=== PATIENT | male | born 1940 | race Caucasian/White ===

== ENCOUNTER → 2017-01-14 | Outpatient (CLI) | payer OTHER ==
[~2017-01-14] MED LIST: ASPCH81X PO; ATOR10TA88 PO; CALC500C70 PO; CHOL100010 PO; CLIN1LOT5 TOP; DSWCR TOP; FERR1TAB23; GLIM1TAB2 PO; HYDR25TA4 PO; LEUP1INJ6 INJ; LOSA50TA6 PO; METF-841 PO; MULT-506 PO; TRIA0.1C20 TOP
[2017-01-14 12:50] LABS: ESTIMATED AVERAGE GLUCOSE 140 mg/dl; HA1C FLAG Normal (Normal)
[2017-01-14 12:51] LABS: BASO % 0.6 %; BASO ABS # 0.04 K/uL (0-0.2); COMPLETE YES; EOS % 6.9 %; HEMATOCRIT 38.2 % (42-52); IG% 0.4 %; LYMPH % 10.9 %; LYMPH ABS # 0.73 K/uL (1.2-3.4); MEAN CORPUSCULAR HEMOGLOBIN 30.8 pg (25-34); MEAN CORPUSCULAR HGB CONC 33.5 g/dl (32-36); MONO % 10.1 %; NEUT % 71.1 %; PLATELET COUNT 220 K/uL (130-400); RED BLOOD COUNT 4.15 M/uL (4.7-6.1); WHITE BLOOD COUNT 6.71 K/uL (4.8-10.8)
[2017-01-14 12:54] LABS: URINE APPEARANCE CLEAR (CLEAR); URINE BILIRUBIN NEG (NEG); URINE COLOR YELLOW; URINE EPITHELIAL CELL AUTO 0-5 /lpf (0-5); URINE NITRITE NEG (NEG); UROBILINOGEN NEG (NEG); ZZUR CULT IF INDIC CLEAN CATCH NO
[2017-01-14 12:57] LABS: MANUAL MICROSCOPIC REQUIRED? NO; REVIEW REQ? NO
[2017-01-14 13:08] LABS: FERRITIN 131.5 ng/ml (8.0-388.0)
[2017-01-14 13:59] LABS: RATIO 5.3 mcg/mg (0-30.0)
--- NOTE | 2017-01-20 11:53 | CODING QUERY MEDICAL NECESSITY ---
SUPPORTING DIAGNOSIS NEEDED A supporting diagnosis is required for the test/procedure performed on this patient in order for us to be reimbursed by the patient's insurance. Please provide a supporting diagnosis for the following test/procedure listed below next to the test name along with your signature. *If there is no additional diagnosis for this patient that would support the following test/procedure please document that below next to the test/procedure. Test(s)/Procedure(s) that require a supporting diagnosis: * FOLATE LEVEL DIAGNOSIS: * VITAMIN B-12 LEVEL DIAGNOSIS: * DOS: 01/14/17 Provider Signature: Date: Thank you Elena Arias Health Information Management Once completed, please kindly fax back to [phone] For questions please call [phone]
== END | disposition home or self-care (01) ==
LOC: C.LABBFT 09:46
PROVIDERS: ATTEND Internal Medicine
DX: C61 Malignant neoplasm of prostate (principal); E11.9 Type 2 diabetes mellitus without complications; D64.9 Anemia, unspecified

== ENCOUNTER → 2017-04-08 | Outpatient (CLI) | payer OTHER ==
[~2017-04-08] MED LIST changes: +ATOR10TA82 PO; -ATOR10TA88 PO
[2017-04-08 17:40] LABS: BLOOD UREA NITROGEN 21 mg/dl (7-18); C-REACTIVE PROTEIN < 0.29 mg/dl (0-0.29); CREATININE 0.88 mg/dl (0.60-1.40)
[2017-04-08 17:50] LABS: THYROID STIMULATING HORMONE 0.959 uIu/ml (0.300-4.500)
[2017-04-10 15:48] LABS: ALBUMIN 3.7 G/DL (3.8-4.8); GAMMA GLOBULIN 1.1 G/DL (0.8-1.7); TOTAL PROTEIN 6.5 G/DL (6.2-8.3)
== END | disposition home or self-care (01) ==
LOC: C.LABBC 15:26
PROVIDERS: ATTEND Psychiatry & Neurology Neurology
DX: Z00.00 Encounter for general adult medical examination without abnormal findings (principal); R42 Dizziness and giddiness; R29.818 Other symptoms and signs involving the nervous system; G62.9 Polyneuropathy, unspecified; E11.9 Type 2 diabetes mellitus without complications

== ENCOUNTER → 2017-04-08 | Outpatient (CLI) | payer OTHER ==
--- NOTE | 2017-04-09 10:48 | EEG Procedure Note ---
EEG Procedure Note Date of Service April 08, 2017. Start / End Times Start Time: 2:51pm End Time: 3:11pm Referring Physician Lidia Rios History 76 year old male with dizziness and hemisensory deficit. EEG for further eval of possible seizure etiology. Home Medication List Scheduled Aspirin (Aspirin Chewable), 81 MG PO HS Atorvastatin (Lipitor), 1 TAB PO HS Calcium/Vitamin D (Os-Juma 500 Plus D), 1 TAB PO QAM Cholecalciferol (Vitamin D), 1,000 INTER.UNIT PO QAM Hydrochlorothiazide (Hctz), 1 TAB PO QAM Leuprolide Acetate (6 Month) (Lupron Depot), 45 MG INJ [id number] Losartan Potassium (Cozaar), 1 TAB PO QAM Metformin HCl (Metformin HCl ER), 1 TAB PO BID Multivitamin (Multivitamin), 1 TAB PO QAM Scheduled PRN Clindamycin Phosphate (Topical (Clindamycin Phosphate), 1 APPLN TOP BID PRN for PRN Desonide 0.05% (Desowen 0.05%), 1 APPLN TOP BID PRN for PRN Triamcinolone Acet 0.1% (Aristocort 0.1%), 1 DOSE TOP PRN PRN for PRN Description This is a 21 electrode EEG with a single channel dedicated to limited EKG. The electrodes were placed in accordance with the International 10-20 system. At the start of the recording the patient was in an awake state. The background was well organized and composed of symmetric mixed alpha and beta frequencies. There was a well formed symmetric moderate amplitude posterior dominant rhythm of 8-9Hz that was reactive to eye opening and closure. Hyperventilation was not done. Photic stimulation at various frequencies produced no abnormalities. Drowsiness was indicated by slowing of the background rhythm and loss of muscle artifact. Sleep was indicated by vertex waves and symmetric sleep spindles Interpretation This is a normal awake and asleep routine EEG There was no electrographic seizures or epileptiform discharges. Clinical Correlation A normal EEG does not rule out epilepsy if there is a strong clinical suspicion.
== END | disposition home or self-care (01) ==
LOC: C.NEUR 14:12
PROVIDERS: ATTEND Psychiatry & Neurology Neurology
DX: R42 Dizziness and giddiness (principal)

== ENCOUNTER → 2017-04-10 | Outpatient (CLI) | payer OTHER ==
[~2017-04-10] MED LIST changes: +GADAVIST IV PRN
--- NOTE | 2017-04-10 10:06 | DIAGNOSTIC IMAGING REPORT ---
NECK MRA HISTORY: Dizziness, hemisensory DEFICIT TECHNIQUE: [id number] and gadolinium-enhanced MRA of the neck was performed both before and after the intravenous administration of contrast. All measurements were calculated based on NASCET criteria. The patient was administered 10 cc of intravenous Gadavist. COMPARISON STUDY: None. FINDINGS: The aortic arch and proximal great vessels are widely patent. There is no significant stenosis, occlusion, or dissection identified within the bilateral common carotid, internal carotid, or vertebral arteries. IMPRESSION: No significant stenosis, occlusion, or dissection identified within the carotid or vertebral arteries. Electronically signed by: Shahbaz Cline M.D. 04/10/2017 10:05 AM Dictated Date/Time: 04/10/2017 10:02 AM
--- NOTE | 2017-04-10 10:58 | DIAGNOSTIC IMAGING REPORT ---
MRI OF THE BRAIN WITHOUT AND WITH IV CONTRAST CLINICAL HISTORY: Dizziness, hemisensory DEFECTIS COMPARISON STUDY: No previous studies for comparison. TECHNIQUE: Utilizing a 1.5 Shelby magnet and dedicated coil, multiplanar, multiecho imaging of the brain was performed pre and postcontrast administration. IV administration of 8.5 mL of Gadavist contrast was uneventful. FINDINGS: Diffusion-weighted images are negative for an acute ischemic insult. No evidence for abnormal postcontrast enhancement. Signal characteristics are unremarkable throughout. Mild age-related chronic small vessel change and atrophy. IMPRESSION: Age-related change. No acute process. Electronically signed by: Jack Suero M.D. 04/10/2017 10:57 AM Dictated Date/Time: 04/10/2017 10:02 AM
== END | disposition home or self-care (01) ==
LOC: C.MRIBC 08:32
PROVIDERS: ATTEND Psychiatry & Neurology Neurology
DX: R42 Dizziness and giddiness (principal); R29.818 Other symptoms and signs involving the nervous system

== ENCOUNTER → 2017-06-04 | Outpatient (CLI) | payer OTHER ==
[~2017-06-04] MED LIST changes: -ATOR10TA82 PO; +ATOR10TA88 PO; -GADAVIST IV PRN
[2017-06-04 12:29] LABS: BASO % 0.9 %; BASO ABS # 0.05 K/uL (0-0.2); COMPLETE YES; EOS % 7.5 %; HEMATOCRIT 38.6 % (42-52); IG% 0.2 %; LYMPH ABS # 0.94 K/uL (1.2-3.4); MEAN CELL VOLUME 92.3 fL (80-100); MEAN CORPUSCULAR HEMOGLOBIN 30.1 pg (25-34); MEAN CORPUSCULAR HGB CONC 32.6 g/dl (32-36); MEAN PLATELET VOLUME 10.4 fL (7.4-10.4); MONO % 9.2 %; NEUT % 66.2 %; PLATELET COUNT 230 K/uL (130-400); RED BLOOD COUNT 4.18 M/uL (4.7-6.1); WHITE BLOOD COUNT 5.87 K/uL (4.8-10.8)
[2017-06-04 12:47] LABS: ALT/SGPT 28 U/L (12-78); BLOOD UREA NITROGEN 17 mg/dl (7-18); BUN/CREATININE RATIO 17.9 (10-20); CALCIUM 8.6 mg/dl (8.5-10.1); CARBON DIOXIDE 25 mmol/L (21-32); CHLORIDE 110 mmol/L (98-107); CHOLESTEROL 138 mg/dl (0-200); CREATININE 0.95 mg/dl (0.60-1.40); GLUCOSE 122 mg/dl (70-99); POTASSIUM 3.8 mmol/L (3.5-5.1); SODIUM 142 mmol/L (136-145); TRIGLYCERIDES 146 mg/dl (0-150); VERY LOW DENSITY LIPOPROT CALC 29 mg/dl
[2017-06-04 12:57] LABS: ALB/GLOB RATIO 0.9 (0.9-2); ALKALINE PHOSPHATASE 68 U/L (45-117); AST/SGOT 17 U/L (15-37); CHOLESTEROL/HDL RATIO 3.2; HDL CHOLESTEROL 43 mg/dl; LDL CHOLESTEROL CALCULATED 66 mg/dl
[2017-06-04 13:14] LABS: ESTIMATED AVERAGE GLUCOSE 143 mg/dl; HA1C FLAG Normal (Normal)
== END | disposition home or self-care (01) ==
LOC: C.LABBFT 07:34
PROVIDERS: ATTEND Internal Medicine
DX: E53.8 Deficiency of other specified B group vitamins (principal); E78.5 Hyperlipidemia, unspecified; E11.9 Type 2 diabetes mellitus without complications; I10 Essential (primary) hypertension; R42 Dizziness and giddiness; H90.5 Unspecified sensorineural hearing loss

== ENCOUNTER → 2017-06-11 | Outpatient (CLI) | payer OTHER ==
[2017-06-11 14:24] VITALS: BP 133/72; PULSE 84; TEMP 36.8; O2SAT 97
--- NOTE | 2017-06-12 08:23 | Radiation Oncology Follow-Up ---
Radiation Oncology Follow-Up Date of Visit Jun 11, 2017. (Kinjal Posada PA-C) Reason For Visit 6 month follow-up (Kinjal Posada PA-C) Radiation Completion Date 05/09/16 (Kinjal Posada PA-C) Diagnosis (1) Prostate cancer Status: Resolved Onset Date: 12/18/2015 Location: both lobes of the prostate Histology Subtype: adenocarcinoma Stage: ll Permanent Comment: DIAGNOSIS: Prostate, adenocarcinoma, kyara 5 + 4, PSA 14.4 , cT2a, group IIB Hormonal suppression Status post completion of radiation therapy 05/09/2016 received 8100 cGy Last Edited By: Kinjal Posada on May 16, 2016 09:54 (Kinjal Posada PA-C) History of Present Illness Mr. Schneider is a 76-year-old gentleman who presents with a history of an elevated PSA with multiple negative prostate biopsies. His most recent PSA was 14.4 on 11/01/2015. He was referred to Dr. Donald Key at [facility] in the Department of Urology. He underwent a transrectal ultrasound-guided biopsy on 12/18/2015 which did reveal prostate adenocarcinoma involving 9/13 cores. [place] 5+4 and 4+5 disease was found in all of the cores. Specifically , 3 cores had Kyara 5+4 disease involving greater than 50% of each core. Perineural invasion was identified. The patient did have a CT abdomen and pelvis completed on 01/09/2016 which showed no evidence of pelvic lymphadenopathy and bony metastatic disease. The patient also had a bone scan on 01/05/2016 which showed no evidence of metastatic disease. Dr. Key discuss treatment options which included surgery and radiation therapy with androgen deprivation therapy. After an in depth discussion, the patient elected for long-term androgen deprivation therapy along with radiation therapy. He has elected to have his radiation therapy closer to home and [place] and we are now seeing him in consultation. Currently, the patient is doing relatively well. He has healed up well from his previous biopsy. His IPSS score is 22/35. His EPIC QOL score is 20/60. He denies any significant history of rectal bleeding. He has no history of inflammatory bowel disease. He's no other complaints. He began hormonal suppression. This was administered through Dr. Key's office. He then underwent radiation therapy. This was completed 05/19/2016. He received 8100 cGy. (Kinjal Posada PA-C) Interim History He is been doing well over the past 6 months. He gave an AUA score of 12. He stated that he had been off the Uroxatral for approximately 6 months and then restarted because he felt his urination was doing better while on the medication. He does have a side effect of mild lightheadedness with standing. He is due for his last Lupron injection in July which she'll be receiving at 's office. He has mild hot flashes. He completed expanded prostate cancer index composite for clinical practice and gave a score of 2 of 12 and urinary incontinence symptoms. He gave a score of 4 of 12 and urinary irritation symptoms. He gave a score of 3 of 12 in bowel symptoms. He gave a score of 8 of 12 in sexual symptoms. To note he states this is not a problem. He gave a score of 3 of 12 and hormonal vitality symptoms. His total was 20 of 60. He had a PSA 01/14/2017. The result was less than 0.010. (Kinjal Posada PA-C) Allergies Coded Allergies: No Known Allergies (Verified , 08/09/16) Home Medications Scheduled Aspirin (Aspirin Chewable), 81 MG PO HS Atorvastatin (Lipitor), 1 TAB PO HS Calcium/Vitamin D (Os-Juma 500 Plus D), 1 TAB PO QAM Cholecalciferol (Vitamin D), 1,000 INTER.UNIT PO QAM Ferrous Sulfate (Iron), DAILY Glimepiride (Glimepiride), 1 TAB PO DAILY Hydrochlorothiazide (Hctz), 1 TAB PO QAM Leuprolide Acetate (6 Month) (Lupron Depot), 45 MG INJ [id number] Losartan Potassium (Cozaar), 1 TAB PO QAM Metformin HCl (Metformin HCl ER), 1 TAB PO BID Multivitamin (Multivitamin), 1 TAB PO QAM Scheduled PRN Clindamycin Phosphate (Topical (Clindamycin Phosphate), 1 APPLN TOP BID PRN for PRN Desonide 0.05% (Desowen 0.05%), 1 APPLN TOP BID PRN for PRN Triamcinolone Acet 0.1% (Aristocort 0.1%), 1 DOSE TOP PRN PRN for PRN Review of Systems Gastrointestinal: Symptoms: WNL GI Comments: oc nausea usually once a week episode of diarrhea Oral: Symptoms: No Problems Respiratory: Symptoms: WNL Urinary: Symptoms: WNL Comments: slow at times Skin: Symptoms: No Problems Other Skin Symptoms: exzema (Kinjal Posada PA-C) Physical Exam Vital Signs Date Time Temp Pulse Resp B/P (MAP) Pulse Ox O2 Delivery O2 Flow Rate FiO2 06/11/17 14:24 36.8 84 20 133/72 97 Pain: Patient Pain Scale: 0 - 10 Initial Pain Intensity: 0.0 Fatigue: None General Appearance: no apparent distress Eyes: normal inspection, EOMI ENT: normal ENT inspection, hearing grossly normal Neck: no adenopathy, thyroid normal Respiratory/Chest: lungs clear, no respiratory distress, no accessory muscle use Cardiovascular: regular rate, rhythm, no gallop, no murmur Abdomen: non tender, soft Extremities: no pedal edema Neurologic/Psychiatric: no motor/sensory deficits, alert Skin: warm/dry (Kinjal Posada PA-C) Laboratory Studies Test 04/08/17 15:33 05/23/17 15:23 06/04/17 07:39 Erythrocyte Sedimentation Rate 15 mm/hr (0-14) C-Reactive Protein < 0.29 mg/dl (0-0.29) Udusj-3-Voxnzexkf 0.2 G/DL (0.2-0.3) Hkaut-4-Ncuosoaox 0.8 G/DL (0.5-0.9) Vlbg-6-Llspuoyv 0.4 G/DL (0.4-0.6) Uvcn-2-Ireibbct 0.3 G/DL (0.2-0.5) Gamma Globulins 1.1 G/DL (0.8-1.7) Prot Electrophor Monoclonal Peak 3 G/DL (NOT DETECTED) Serum Monoclonal Protein G/DL (NOT DETECTED) Serum Monoclonal Protein (2) G/DL (NOT DETECTED) Protein Electrophoresis Interpret SEE NOTE Thyroid Stimulating Hormone (TSH) 0.959 uIu/ml (0.300-4.500) 1.370 uIu/ml (0.300-4.500) Serum Immunofixation SEE NOTE Total Protein (MORENO) 6.5 G/DL (6.2-8.3) Albumin (MORENO) 3.7 G/DL (3.8-4.8) Anti-Nuclear Antibody Screen NEGATIVE (NEGATIVE) Rapid Plasma Reagin NONREACTIVE (NONREACT) White Blood Count 6.48 K/uL (4.8-10.8) 5.87 K/uL (4.8-10.8) Red Blood Count 4.17 M/uL (4.7-6.1) 4.18 M/uL (4.7-6.1) Hemoglobin 12.9 g/dL (14.0-18.0) 12.6 g/dL (14.0-18.0) Hematocrit 37.9 % (42-52) 38.6 % (42-52) Mean Corpuscular Volume 90.9 fL (80-100) 92.3 fL (80-100) Mean Corpuscular Hemoglobin 30.9 pg (25-34) 30.1 pg (25-34) Mean Corpuscular Hemoglobin Concent 34.0 g/dl (32-36) 32.6 g/dl (32-36) Platelet Count 223 K/uL (130-400) 230 K/uL (130-400) Mean Platelet Volume 10.5 fL (7.4-10.4) 10.4 fL (7.4-10.4) Neutrophils (%) (Auto) 68.7 % 66.2 % Lymphocytes (%) (Auto) 14.7 % 16.0 % Monocytes (%) (Auto) 8.2 % 9.2 % Eosinophils (%) (Auto) 7.1 % 7.5 % Basophils (%) (Auto) 0.8 % 0.9 % Neutrophils # (Auto) 4.46 K/uL (1.4-6.5) 3.89 K/uL (1.4-6.5) Lymphocytes # (Auto) 0.95 K/uL (1.2-3.4) 0.94 K/uL (1.2-3.4) Monocytes # (Auto) 0.53 K/uL (0.11-0.59) 0.54 K/uL (0.11-0.59) Eosinophils # (Auto) 0.46 K/uL (0-0.5) 0.44 K/uL (0-0.5) Basophils # (Auto) 0.05 K/uL (0-0.2) 0.05 K/uL (0-0.2) RDW Standard Deviation 44.8 fL (36.4-46.3) 46.2 fL (36.4-46.3) RDW Coefficient of Variation 13.5 % (11.5-14.5) 13.7 % (11.5-14.5) Immature Granulocyte % (Auto) 0.5 % 0.2 % Immature Granulocyte # (Auto) 0.03 K/uL (0.00-0.02) 0.01 K/uL (0.00-0.02) Sodium Level 143 mmol/L (136-145) 142 mmol/L (136-145) Potassium Level 3.6 mmol/L (3.5-5.1) 3.8 mmol/L (3.5-5.1) Chloride Level 109 mmol/L (98-107) 110 mmol/L (98-107) Carbon Dioxide Level 25 mmol/L (21-32) 25 mmol/L (21-32) Anion Gap 9.0 mmol/L (3-11) 7.0 mmol/L (3-11) Blood Urea Nitrogen 18 mg/dl (7-18) 17 mg/dl (7-18) Creatinine 0.96 mg/dl (0.60-1.40) 0.95 mg/dl (0.60-1.40) Estimated GFR () 88.0 89.1 Estimated GFR (Non- 75.9 76.9 BUN/Creatinine Ratio 18.4 (10-20) 17.9 (10-20) Random Glucose 108 mg/dl (70-99) 122 mg/dl (70-99) Calcium Level 9.3 mg/dl (8.5-10.1) 8.6 mg/dl (8.5-10.1) Erythropoietin 12.5 MIU/ML (2.6-18.5) Total Bilirubin 0.2 mg/dl (0.2-1) 0.3 mg/dl (0.2-1) Aspartate Amino Transferase (AST) 20 U/L (15-37) 17 U/L (15-37) Alanine Aminotransferase (ALT) 31 U/L (12-78) 28 U/L (12-78) Alkaline Phosphatase 63 U/L (45-117) 68 U/L (45-117) Lactate Dehydrogenase 148 U/L (87-241) Total Protein 6.9 gm/dl (6.4-8.2) 6.8 gm/dl (6.4-8.2) Albumin 3.5 gm/dl (3.4-5.0) 3.3 gm/dl (3.4-5.0) Globulin 3.4 gm/dl (2.5-4.0) 3.5 gm/dl (2.5-4.0) Albumin/Globulin Ratio 1.0 (0.9-2) 0.9 (0.9-2) Methylmalonic Acid 201 NMOL/L (87-318) Homocysteine 11.4 UMOL/L (<11.4) Free [place] Light Chains, Quant 17.2 MG/L (3.3-19.4) Free Lambda Light Chains, Quant 18.2 MG/L (5.7-26.3) Free [place]/Lambda Light Chain Ratio 0.95 (0.26-1.65) Estimated Average Glucose 143 mg/dl Hemoglobin A1c 6.6 % (4.5-5.6) Triglycerides Level 146 mg/dl (0-150) Cholesterol Level 138 mg/dl (0-200) HDL Cholesterol 43 mg/dl LDL Cholesterol, Calculated 66 mg/dl VLDL Cholesterol, Calculated 29 mg/dl Cholesterol/HDL Ratio 3.2 Vitamin B12 Level 219 pg/mL (211-911) Intrinsic Factor Type I Blocking Ab Negative (Negative) (Kinjal Posada PA-C) Assessment & Plan Plan: Continue regular follow-up with his urologist. He'll be seeing him in July. He'll have a PSA prior to that visit. He'll be receiving his last Lupron injection. He is planning to continue the Uroxatral. 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 He stated currently is doing well regards to his eyes and has not been found to have any cataracts thus far. We asked him to return to our office in 1 year. He may call if he has any questions or concerns in the interim. (Kinjal Posada PA-C) I agree with note created by Kinjal Posada PA-C. I reviewed the patient's chart and information with her. (Veeral. Damian MD) Total Time In Follow-Up I spent 20 minutes speaking to the patient performing examination. I spent 15 minutes reviewing information in completing this note. (Kinjal Posada PA-C) Copy To José Mixon M.D.; Donald Key M.D.
== END | disposition home or self-care (01) ==
LOC: C.ONC 14:08
PROVIDERS: ATTEND Physician Assistant Medical
DX: Z08 Encounter for follow-up examination after completed treatment for malignant neoplasm (principal); Z92.3 Personal history of irradiation; Z85.46 Personal history of malignant neoplasm of prostate

== ENCOUNTER → 2017-06-20 | Outpatient (CLI) | payer OTHER ==
[~2017-06-20] MED LIST changes: +GADAVIST IV PRN
--- NOTE | 2017-06-20 14:36 | DIAGNOSTIC IMAGING REPORT ---
BRAIN COMBO FOR IAC CLINICAL HISTORY: R42 Episodic [id number] SNHL (sensorineural hearing lo TECHNIQUE: Multiaxial MRI acquisition COMPARISON STUDY: 04/10/2017 FINDINGS: Findings of generalized moderate cerebellar as well as cerebral atrophy. Ventricular system is midline. Moderate chronic small vessel change of aging. No abnormal postcontrast enhancement. Sella and parasellar regions are unremarkable. Internal auditory canals are symmetric IMPRESSION: Age-related change. No acute process. Normal internal auditory canals The above report was generated using voice recognition software. It may contain grammatical, syntax or spelling errors. Electronically signed by: Jack Suero M.D. 06/20/2017 2:34 PM Dictated Date/Time: 06/20/2017 2:31 PM
== END | disposition home or self-care (01) ==
LOC: C.MRI 13:16
PROVIDERS: ATTEND Physician Assistant
DX: H90.5 Unspecified sensorineural hearing loss (principal); R42 Dizziness and giddiness

== ENCOUNTER → 2017-07-21 | Outpatient (CLI) | payer OTHER ==
[~2017-07-21] MED LIST changes: -GADAVIST IV PRN
== END | disposition home or self-care (01) ==
LOC: C.LABBFT 07:45
PROVIDERS: ATTEND Urology
DX: C61 Malignant neoplasm of prostate (principal)

== ENCOUNTER → 2018-01-12 | Outpatient (CLI) | payer OTHER ==
[~2018-01-12] MED LIST changes: +ATOR10TA82 PO; -ATOR10TA88 PO
[2018-01-12 12:34] LABS: BASO % 0.3 %; BASO ABS # 0.02 K/uL (0-0.2); EOS % 3.2 %; EOS ABS # 0.24 K/uL (0-0.5); HEMATOCRIT 38.2 % (42-52); HEMOGLOBIN 12.4 g/dL (14.0-18.0); IG# 0.02 K/uL (0.00-0.02); LYMPH % 10.6 %; LYMPH ABS # 0.79 K/uL (1.2-3.4); MEAN CELL VOLUME 93.2 fL (80-100); MEAN CORPUSCULAR HEMOGLOBIN 30.2 pg (25-34); MEAN CORPUSCULAR HGB CONC 32.5 g/dl (32-36); MEAN PLATELET VOLUME 10.8 fL (7.4-10.4); MONO % 8.2 %; MONO ABS # 0.61 K/uL (0.11-0.59); NEUT % 77.4 %; NEUT ABS # 5.75 K/uL (1.4-6.5); PLATELET COUNT 260 K/uL (130-400); RED CELL DISTRIBUTION WIDTH CV 13.7 % (11.5-14.5); RED CELL DISTRIBUTION WIDTH SD 46.2 fL (36.4-46.3); WHITE BLOOD COUNT 7.43 K/uL (4.8-10.8)
[2018-01-12 13:09] LABS: BLOOD UREA NITROGEN 20 mg/dl (7-18); CALCIUM 8.8 mg/dl (8.5-10.1); CARBON DIOXIDE 23 mmol/L (21-32); CREATININE 0.97 mg/dl (0.60-1.40); GLUCOSE 132 mg/dl (70-99); POTASSIUM 3.7 mmol/L (3.5-5.1); SODIUM 139 mmol/L (136-145)
[2018-01-12 13:35] LABS: HEMOGLOBIN A1C 6.5 % (4.5-5.6)
== END | disposition home or self-care (01) ==
LOC: C.LABBFT 07:28
PROVIDERS: ATTEND Internal Medicine
DX: E11.9 Type 2 diabetes mellitus without complications (principal); E53.8 Deficiency of other specified B group vitamins; D64.9 Anemia, unspecified

== ENCOUNTER 2018-02-15 15:10 | Emergency (ER) | payer OTHER ==
[~2018-02-15] VITALS: Ht 175.3 cm; Wt 102.3 kg
[2018-02-15 15:12] VITALS: TEMP 36.8; Ht 175.3 cm; Wt 102.3 kg
[2018-02-15] MEDS ORDERED: SODIUM CHLORIDE 0.9% 500ML 500 ML IV STA (15:24)
[2018-02-15] MEDS ORDERED: ONDANSETRON INJ 2 MG/ML 2 ML VIAL IV STA (15:24)
[2018-02-15 15:45] LABS: BASO % 0.2 %; BASO ABS # 0.02 K/uL (0-0.2); EOS % 2.7 %; EOS ABS # 0.26 K/uL (0-0.5); HEMATOCRIT 37.7 % (42-52); HEMOGLOBIN 12.7 g/dL (14.0-18.0); IG# 0.02 K/uL (0.00-0.02); LYMPH % 7.5 %; LYMPH ABS # 0.72 K/uL (1.2-3.4); MEAN CELL VOLUME 91.3 fL (80-100); MEAN CORPUSCULAR HEMOGLOBIN 30.8 pg (25-34); MEAN CORPUSCULAR HGB CONC 33.7 g/dl (32-36); MEAN PLATELET VOLUME 10.3 fL (7.4-10.4); MONO % 4.6 %; MONO ABS # 0.44 K/uL (0.11-0.59); NEUT % 84.8 %; NEUT ABS # 8.16 K/uL (1.4-6.5); PLATELET COUNT 218 K/uL (130-400); RED CELL DISTRIBUTION WIDTH CV 14.2 % (11.5-14.5); WHITE BLOOD COUNT 9.62 K/uL (4.8-10.8)
[2018-02-15] MEDS ORDERED: VTMD1000 PO (15:48)
[2018-02-15 16:07] LABS: ALBUMIN 3.5 gm/dl (3.4-5.0); CALCIUM 8.9 mg/dl (8.5-10.1); CREATININE 1.21 mg/dl (0.60-1.40); POTASSIUM 3.6 mmol/L (3.5-5.1)
[2018-02-15 16:10] LABS: TOTAL PROTEIN 7.3 gm/dl (6.4-8.2)
[2018-02-15 16:45] VITALS: BP 158/69; PULSE 75; O2SAT 98
--- NOTE | 2018-02-15 16:47 | DIAGNOSTIC IMAGING REPORT ---
ABD/PELVIS WITHOUT FOR STONE HISTORY: 77 years-old Male right flank pain eval for stone/appe acute right-sided flank pain COMPARISON: CT 01/09/2016 TECHNIQUE: Multiple axial CT images of the abdomen and pelvis were obtained without contrast. A dose lowering technique was used consistent with the principals of SAVANA. FINDINGS: Subsegmental bibasilar atelectasis/scarring. There is no pneumatosis or pneumoperitoneum. Imaged inferior cardiac chambers are mildly enlarged. Coronary arterial disease. Mild fatty infiltration of the liver. No intrahepatic biliary ductal dilation. Contracted gallbladder. The spleen, pancreas and right adrenal gland are unremarkable. 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 Moderate nonspecific bilateral perinephric stranding. Low attenuating 1.5 cm lesion of the inferior pole right kidney suggests renal cyst. Additionally, there is suggestion of bilateral renal sinus cysts. There is no ureteral calculi or obstructive uropathy identified. Urinary bladder is collapsed. Brachy therapy seeds are noted within the prostate. There is moderate to extensive atherosclerosis of the aorta without aneurysm. No bulky adenopathy. There is no bowel obstruction or focal bowel wall thickening identified. Moderate colonic diverticulosis without CT evidence of acute diverticulitis. The appendix appears normal. Soft tissues are within normal limits. Facet arthrosis involves the thoracolumbar spine with multilevel spondylitic changes. No suspicious lytic or blastic bony lesions identified. IMPRESSION: 1. No acute intra-abdominal or intrapelvic abnormality identified, specifically no renal calculi or obstructive uropathy. 2. Colonic diverticulosis without CT evidence of acute diverticulitis. 3. Hepatic steatosis. 4. Additional findings as above. The above report was generated using voice recognition software. It may contain grammatical, syntax or spelling errors. Electronically signed by: Jerry Cisneros M.D. 02/15/2018 4:45 PM Dictated Date/Time: 02/15/2018 4:39 PM
[2018-02-15] MEDS ORDERED: ONDANSETRON HOME PACK 4MG OD TAB PO ONE (17:15)
--- NOTE | 2018-02-15 18:59 | EMERGENCY ROOM VISIT NOTE ---
History Report prepared by Shalom: Livan Montano Under the Supervision of: Dr. Rohan Mao M.D. First contact with patient: 15:18 Chief Complaint: FLANK PAIN Stated Complaint: PAIN IN LOWER LEFT SIDE,VOMITING History of Present Illness The patient is a 77 year old male who presents to the Emergency Room with complaints of constant right sided flank pain starting around 1130 this morning. The patient describes the pain as an ache. He additionally notes that he constantly feels the urge to urinate and defecate. The patient denies any burning with urination, fever, chest pain, and diarrhea. He notes that he vomited this morning. He denies any chest pain. The patient has a history of prostate cancer which was treated, and he denies any history of kidney stones. He notes that he still has his appendix. Source of History: patient Onset: 1130 this morning Position: other (right flank) Symptom Intensity: moderate Quality: ache Timing: constant Associated Symptoms: + vomiting, No fevers, No chest pain, No diarrhea Note: Associated symptoms: he constantly feels the urge to urinate and defecate Review of Systems See HPI for pertinent positives & negatives. A total of 10 systems reviewed and were otherwise negative. Past Medical & Surgical Medical Problems: (1) Diabetes (2) HLD (hyperlipidemia) (3) HTN (hypertension) (4) Prostate cancer Family History FHx: colonic polyps Social History Smoking Status: Never Smoker Marital Status: Occupation Status: retired Current/Historical Medications Scheduled Aspirin (Aspirin Chewable), 81 MG PO HS Atorvastatin (Lipitor), 1 TAB PO HS Calcium/Vitamin D (Os-Juma 500 Plus D), 1 TAB PO QAM Cholecalciferol (Vitamin D3), 1,000 UNITS PO QAM Glimepiride (Glimepiride), 1 MG PO QDB Hydrochlorothiazide (Hctz), 1 TAB PO QAM Losartan Potassium (Cozaar), 1 TAB PO QAM Metformin HCl (Metformin HCl ER), 1 TAB PO BID Multivitamin (Multivitamin), 1 TAB PO QAM Scheduled PRN Desonide 0.05% (Desowen 0.05%), 1 APPLN TOP BID PRN for PRN Allergies Coded Allergies: No Known Allergies (Verified , 02/15/18) Physical Exam Vital Signs Date Time Temp Pulse Resp B/P (MAP) Pulse Ox O2 Delivery O2 Flow Rate FiO2 02/15/18 16:45 75 16 158/69 98 Room Air 02/15/18 15:12 36.8 79 18 167/71 97 Room Air Physical Exam Constitutional: Vital signs reviewed. Eyes: Pupils are equal round reactive to light. Conjunctiva are noninjected. ENT: Pharynx is clear without erythema or exudate. Mucous membranes are moist. Neck supple without meningeal signs. Respiratory: Clear to auscultation bilaterally. Breath sounds are equal bilaterally. Cardiovascular: Regular rate and rhythm. No rubs or gallops. GI: Right mid and lower abdominal tenderness. No guarding. No CVA tenderness. Soft, nondistended. Bowel sounds are present. Musculoskeletal: No peripheral edema. No lower extremity tenderness. Integumentary: No cyanosis. Neurological: The patient is awake and alert. No focal deficits. Psychiatric: Normal affect. Medical Decision & Procedures ER Provider Diagnostic Interpretation: Radiology results as stated below per my review and the radiologist's interpretation: ABD/PELVIS WITHOUT FOR STONE HISTORY: 77 years-old Male right flank pain eval for stone/appe acute right-sided flank pain COMPARISON: CT 01/09/2016 TECHNIQUE: Multiple axial CT images of the abdomen and pelvis were obtained without contrast. A dose lowering technique was used consistent with the principals of SAVANA. FINDINGS: Subsegmental bibasilar atelectasis/scarring. There is no pneumatosis or pneumoperitoneum. Imaged inferior cardiac chambers are mildly enlarged. Coronary arterial disease. Mild fatty infiltration of the liver. No intrahepatic biliary ductal dilation. Contracted gallbladder. The spleen, pancreas and right adrenal gland are unremarkable. 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 Moderate nonspecific bilateral perinephric stranding. Low attenuating 1.5 cm lesion of the inferior pole right kidney suggests renal cyst. Additionally, there is suggestion of bilateral renal sinus cysts. There is no ureteral calculi or obstructive uropathy identified. Urinary bladder is collapsed. Brachy therapy seeds are noted within the prostate. There is moderate to extensive atherosclerosis of the aorta without aneurysm. No bulky adenopathy. There is no bowel obstruction or focal bowel wall thickening identified. Moderate colonic diverticulosis without CT evidence of acute diverticulitis. The appendix appears normal. Soft tissues are within normal limits. Facet arthrosis involves the thoracolumbar spine with multilevel spondylitic changes. No suspicious lytic or blastic bony lesions identified. IMPRESSION: 1. No acute intra-abdominal or intrapelvic abnormality identified, specifically no renal calculi or obstructive uropathy. 2. Colonic diverticulosis without CT evidence of acute diverticulitis. 3. Hepatic steatosis. 4. Additional findings as above. The above report was generated using voice recognition software. It may contain grammatical, syntax or spelling errors. Electronically signed by: Jerry Cisneros M.D. 02/15/2018 4:45 PM Dictated Date/Time: 02/15/2018 4:39 PM Laboratory Results 02/15/18 15:31 Red Blood Count 4.13, Mean Corpuscular Volume 91.3, Mean Corpuscular Hemoglobin 30.8, Mean Corpuscular Hemoglobin Concent 33.7, Mean Platelet Volume 10.3, Neutrophils (%) (Auto) 84.8, Lymphocytes (%) (Auto) 7.5, Monocytes (%) (Auto) 4.6, Eosinophils (%) (Auto) 2.7, Basophils (%) (Auto) 0.2, Neutrophils # (Auto) 8.16, Lymphocytes # (Auto) 0.72, Monocytes # (Auto) 0.44, Eosinophils # (Auto) 0.26, Basophils # (Auto) 0.02 02/15/18 15:31 Test 02/15/18 15:26 02/15/18 15:31 Urine Color DK YELLOW Urine Appearance CLOUDY (CLEAR) Urine pH 5.0 (4.5-7.5) Urine Specific [place] 1.027 (1.000-1.030) Urine Protein NEG (NEG) Urine Glucose (UA) NEG (NEG) Urine Ketones TRACE (NEG) Urine Occult Blood 3+ (NEG) Urine Nitrite NEG (NEG) Urine Bilirubin NEG (NEG) Urine Urobilinogen NEG (NEG) Urine Leukocyte Esterase NEG (NEG) Urine WBC (Auto) 1-5 /hpf (0-5) Urine RBC (Auto) >30 /hpf (0-4) Urine Hyaline Casts (Auto) 1-5 /lpf (0-5) Urine Epithelial Cells (Auto) 5-10 /lpf (0-5) Urine Bacteria (Auto) NEG (NEG) White Blood Count 9.62 K/uL (4.8-10.8) Red Blood Count 4.13 M/uL (4.7-6.1) Hemoglobin 12.7 g/dL (14.0-18.0) Hematocrit 37.7 % (42-52) Mean Corpuscular Volume 91.3 fL (80-100) Mean Corpuscular Hemoglobin 30.8 pg (25-34) Mean Corpuscular Hemoglobin Concent 33.7 g/dl (32-36) Platelet Count 218 K/uL (130-400) Mean Platelet Volume 10.3 fL (7.4-10.4) Neutrophils (%) (Auto) 84.8 % Lymphocytes (%) (Auto) 7.5 % Monocytes (%) (Auto) 4.6 % Eosinophils (%) (Auto) 2.7 % Basophils (%) (Auto) 0.2 % Neutrophils # (Auto) 8.16 K/uL (1.4-6.5) Lymphocytes # (Auto) 0.72 K/uL (1.2-3.4) Monocytes # (Auto) 0.44 K/uL (0.11-0.59) Eosinophils # (Auto) 0.26 K/uL (0-0.5) Basophils # (Auto) 0.02 K/uL (0-0.2) RDW Standard Deviation 47.0 fL (36.4-46.3) RDW Coefficient of Variation 14.2 % (11.5-14.5) Immature Granulocyte % (Auto) 0.2 % Immature Granulocyte # (Auto) 0.02 K/uL (0.00-0.02) Anion Gap 9.0 mmol/L (3-11) Est Creatinine Clear Calc Drug Dose 60.3 ml/min Estimated GFR () 66.5 Estimated GFR (Non- 57.4 BUN/Creatinine Ratio 18.3 (10-20) Calcium Level 8.9 mg/dl (8.5-10.1) Total Bilirubin 0.4 mg/dl (0.2-1) Direct Bilirubin 0.1 mg/dl (0-0.2) Aspartate Amino Transf (AST/SGOT) 19 U/L (15-37) Alanine Aminotransferase (ALT/SGPT) 29 U/L (12-78) Alkaline Phosphatase 80 U/L (45-117) Total Protein 7.3 gm/dl (6.4-8.2) Albumin 3.5 gm/dl (3.4-5.0) Lipase 156 U/L (73-393) Laboratory results as reviewed by me. Medications Administered Medications (Trade) Dose Ordered Sig/Medardo Route Start Time Stop Time Status Last Admin Dose Admin Ondansetron HCl (Zofran Inj) 4 mg NOW STAT IV 02/15/18 15:24 02/15/18 15:26 DC 02/15/18 15:35 4 MG Sodium Chloride 500 ml @ 999 mls/hr Q31M STAT IV 02/15/18 15:24 02/15/18 15:54 DC 02/15/18 15:35 999 MLS/HR Ondansetron HCl (ZOFRAN ODT 4MG Home Pack) 1 homepack UD ONCE PO 02/15/18 17:15 02/15/18 17:16 DC 02/15/18 17:15 1 HOMEPACK ED Course 1518: The patient was evaluated in room A11. A complete history and physical exam was performed. 1524: Sodium Chloride 500 ml @ 999 mls/hr IV, Zofran 4mg IV 1707: I reevaluated the patient, and he is feeling better now. He states that he had a little bit of nausea earlier, but that passed. The patient will be discharged home. 1715: Zofran ODT 4mg Home Pack PO Medical Decision This is a 77-year-old male who presents with right-sided flank pain. Differential diagnosis includes kidney stone, UTI, pyelonephritis, strain, appendicitis. I did perform a limited focused review of portions of the patient 's old chart on the electronic medical record. The patient has had no recent pertinent visits to this hospital. I did evaluate the patient as noted above. He is presenting with right-sided flank pain. He has some mild tenderness in the right lower abdomen and mid abdomen. IV access was established. I did treat the patient with normal saline and Zofran IV. I did order and personally review the patient's urinalysis as described above. He has hematuria but no evidence of infection. A urine culture was sent. I did order and review the patient's blood work as noted in the electronic medical record. He has mild anemia but his hemoglobin is improved since his last visit. White count is not elevated. I did order a CT of the abdomen and pelvis. I did review the images myself as well as the radiology report as described above. There is no evidence of acute process on the CT scan. I did discuss the test results with the patient. He states that at this time is not having any significant pain. He states lying in a certain position seems to help his pain although is not sure if that is truly related. At this time the cause of his symptoms is unclear and so I did recommend close follow-up with his regular physician within the next 48 hours. He was discharged in good condition. Medication Reconcilliation Current Medication List: was personally reviewed by me Blood Pressure Screening Patient's blood pressure: Elevated blood pressure Blood pressure disposition: Referred to PCP Impression Primary Impression: Right flank pain Scribe Attestation The scribe's documentation has been prepared under my direct and personally reviewed by me in its entirety. I confirm that the note above accurately reflects all work, treatment, procedures, and medical decision making performed by me. Departure Information Dispostion Home / Self-Care Referrals José Mixon M.D. (PCP) Forms HOME CARE DOCUMENTATION FORM, IMPORTANT VISIT INFORMATION Patient Instructions ED Flank Pain Uncertain Cause, My [facility] Additional Instructions You have been examined and treated today on an emergency basis only. This is not a substitute for, or an effort to provide, complete comprehensive medical care. It is impossible to recognize and treat all injuries or illnesses in a single emergency department visit. It is therefore important that you follow up closely with your physician within 48 hours. Call as soon as possible for an appointment. Return for worsening symptoms or if you develop fever, vomiting, or any other concerning symptoms.
== END 2018-02-15 17:15 | disposition home or self-care (01) ==
LOC: C.EDB 15:12 → C.EDA 17:15
DX: R10.31 Right lower quadrant pain (principal); Z85.46 Personal history of malignant neoplasm of prostate; E11.9 Type 2 diabetes mellitus without complications; E78.5 Hyperlipidemia, unspecified; I10 Essential (primary) hypertension; Z83.71 Family history of colonic polyps; Z79.82 Long term (current) use of aspirin; Z79.899 Other long term (current) drug therapy

== ENCOUNTER → 2018-02-16 | Outpatient (CLI) | payer OTHER ==
[~2018-02-16] MED LIST changes: -CHOL100010 PO; -CLIN1LOT5 TOP; -FERR1TAB23; -LEUP1INJ6 INJ; -TRIA0.1C20 TOP; +VTMD1000 PO
--- NOTE | 2018-02-16 12:51 | DIAGNOSTIC IMAGING REPORT ---
CHEST AND ABDOMEN 2 VIEWS HISTORY: Right flank pain. COMPARISON: Chest 03/13/2015. Abdomen and pelvis CT 02/15/2018. FINDINGS: The lungs are essentially clear. The heart is normal in size. Left perihilar nodular density remain stable and is consistent with a tortuous vessel. No pleural effusions. No pneumothorax. No renal or ureteral calculi. No dilated loops of bowel to suggest an obstruction. A few brachytherapy seeds at the prostate gland. IMPRESSION: No acute cardiopulmonary process. No evidence for bowel obstruction. Electronically signed by: Eliceo Kasper M.D. 02/16/2018 12:50 PM Dictated Date/Time: 02/16/2018 12:46 PM
== END | disposition home or self-care (01) ==
LOC: C.RAD1850 10:58
PROVIDERS: ATTEND Physician Assistant Medical
DX: R10.9 Unspecified abdominal pain (principal)

== ENCOUNTER → 2018-02-23 | Outpatient (CLI) | payer OTHER ==
[~2018-02-23] MED LIST changes: +URX/10 PO
--- NOTE | 2018-02-23 08:43 | DIAGNOSTIC IMAGING REPORT ---
ABDOMINAL ULTRASOUND, RIGHT UPPER QUADRANT HISTORY: Right-sided abdominal pain. Constipation.. COMPARISON: CT of the abdomen and pelvis February 15, 2018 and abdominal series February 16, 2018. FINDINGS: Increased hepatic echogenicity is due to fatty infiltration. No hepatic lesions are identified on this exam. There is no biliary ductal dilatation. The gallbladder is normal. There are no gallstones. Right-sided parapelvic cysts are noted as well as a 5.3 cm anechoic lesion consistent with a cyst which arises from the lower pole of the right kidney. Pancreatic body is unremarkable. The head and tail are partially obscured by overlying bowel gas. IMPRESSION: 1. Fatty infiltration of the liver. 2. No gallstones or biliary ductal dilatation. Electronically signed by: Luis Starks M.D. 02/23/2018 8:42 AM Dictated Date/Time: 02/23/2018 8:38 AM
== END | disposition home or self-care (01) ==
LOC: C.ULTR 07:50
PROVIDERS: ATTEND Physician Assistant Medical
DX: R10.9 Unspecified abdominal pain (principal); K59.00 Constipation, unspecified; K76.0 Fatty (change of) liver, not elsewhere classified

== ENCOUNTER → 2018-03-11 | Day surgery (SDC) | payer OTHER ==
[2018-03-05 14:31] VITALS: BMI 33.0
[~2018-03-11] VITALS: Ht 175.3 cm; Wt 102.3 kg
[~2018-03-11] MED LIST changes: +LIDOCAINE HCL 2% 2 ML VIAL (20MG/ML) ONE; +PROPOFOL IV EMULSION 10 MG/ML 20 ML VIAL IV ONE; +SODIUM CHLORIDE 0.9% 500ML 500 ML IV ONE
[2018-03-11 08:19] VITALS: Ht 175.3 cm; Wt 102.3 kg
--- NOTE | 2018-03-11 08:47 | Endo History and Physical ---
History & Physical Date of Service: Mar 11, 2018. Chief Complaint: hematochezia Referring Physician: Dr. Mixon History of Present Illness 77 yo CM who presents for colonoscopy secondary to hematochezia. Past Medical History Diabetes, Cancer, High Cholesterol, Hypertension Past Surgical History Hx Cardiac Surgery: No Hx Internal Defibrillator: No Hx Pacemaker: No Hx Abdominal Surgery: No Hx of Implantable Prosthesis: No Hx Post-Op Nausea and Vomiting: No Hx Cancer Surgery: Yes (RADIATION SEEDING PROSTATE) Hx Thoracic Surgery: No Hx Orthopedic: No Hx Urinary Tract Surgery: Yes (VASECTOMY) Family History Polyp Social History Smoking Status: Never Smoker Hx Substance Use: No Hx Alcohol Use: No Allergies Coded Allergies: No Known Allergies (Verified , 03/11/18) Current Medications Reported Home Medications Medications Dose Route/Sig Max Daily Dose Days Date Category Alfuzosin HCl ER (Alfuzosin HCl) 10 Mg Tab 10 Mg PO QPM 03/05/18 Reported Vitamin D3 (Cholecalciferol) 1,000 Inter.unit Tab 1,000 Units PO QAM 02/15/18 Reported Glimepiride 1 Mg Tab 1 Mg PO QAM 30 06/11/17 Reported Os-Juma 500 Plus D (Calcium/Vitamin D) Tab 1 Tab PO QAM 08/01/16 Reported Metformin HCl ER (Metformin HCl) 1,000 Mg Tab 1 Tab PO BID 08/01/16 Reported Multivitamin (Multivitamins) Tab 1 Tab PO QAM 01/18/16 Reported Cozaar (Losartan Potassium) 50 Mg Tab 1 Tab PO QAM 01/18/16 Reported Hctz (Hydrochlorothiazide) 25 Mg Tab 1 Tab PO QAM 01/18/16 Reported Desowen 0.05% (Desonide) 60 Gm Cr 1 Appln TOP BID PRN 01/18/16 Reported Lipitor (Atorvastatin Calcium) 10 Mg Tab 1 Tab PO HS 01/18/16 Reported Aspirin Chewable (Aspirin) 81 Mg Chew 81 Mg PO HS 01/18/16 Reported Vital Signs Weight (Kilograms): 102.27 Height (Feet): 5 Height (Inches): 9 Date Time Temp Pulse Resp B/P (MAP) Pulse Ox O2 Delivery O2 Flow Rate FiO2 03/11/18 08:26 36.5 96 20 175/100 (125) 97 Room Air Physical Exam General Appearance: WD/WN, no apparent distress Respiratory/Chest: Auscultation: breath sounds normal Cardiovascular: Heart Auscultation: RRR Abdomen: Bowel Sounds: normal Inspection & Palpation: soft, non-distended, no tenderness, guarding & rebound Assessment and Plan Assessment: 77 yo CM who presents for colonoscopy secondary to hematochezia. Plan: Proceed with colonoscopy.
--- NOTE | 2018-03-11 09:40 | Discharge Instructions ---
Endoscopy Patient Instructions Date / Procedure(s) Performed Mar 11, 2018. Colonoscopy Allergy Information Coded Allergies: No Known Allergies (Verified , 03/11/18) Discharge Date / Findings Mar 11, 2018. Colon polyps Radiation proctitis Medication Instructions OK to resume all medications today as prescribed Reported Home Medications Medications Dose Route/Sig Max Daily Dose Days Date Category Alfuzosin HCl ER (Alfuzosin HCl) 10 Mg Tab 10 Mg PO QPM 03/05/18 Reported Vitamin D3 (Cholecalciferol) 1,000 Inter.unit Tab 1,000 Units PO QAM 02/15/18 Reported Glimepiride 1 Mg Tab 1 Mg PO QAM 30 06/11/17 Reported Os-Juma 500 Plus D (Calcium/Vitamin D) Tab 1 Tab PO QAM 08/01/16 Reported Metformin HCl ER (Metformin HCl) 1,000 Mg Tab 1 Tab PO BID 08/01/16 Reported Multivitamin (Multivitamins) Tab 1 Tab PO QAM 01/18/16 Reported Cozaar (Losartan Potassium) 50 Mg Tab 1 Tab PO QAM 01/18/16 Reported Hctz (Hydrochlorothiazide) 25 Mg Tab 1 Tab PO QAM 01/18/16 Reported Desowen 0.05% (Desonide) 60 Gm Cr 1 Appln TOP BID PRN 01/18/16 Reported Lipitor (Atorvastatin Calcium) 10 Mg Tab 1 Tab PO HS 01/18/16 Reported Aspirin Chewable (Aspirin) 81 Mg Chew 81 Mg PO HS 01/18/16 Reported Provider Instructions Activity Restrictions - No exercising or heavy lifting for 24 hours. - Do not drink alcohol the day of the procedure. - Do not drive a car or operate machinery until the day after the procedure. - Do not make any important decisions or sign important papers in 24 hours after the procedure. Following Day: - Return to full activity which may include returning to work/school. Diet Start your diet with liquids and light foods (jello, soup, juice, toast). Then eat your usual diet if not nauseated. Treatment For Common After Affects For mild abdominal pain, bloating, or excessive gas: - Rest - Eat lightly - Lie on right side Follow-Up Information Follow-up with Dr. Mixon as scheduled Anesthesia Information What You Should Know You have had a procedure that required some medicine to reduce anxiety and discomfort. This treatment is called moderate sedation. After receiving the treatment, you may be sleepy, but you will be able to breathe on your own. The effects of the treatment may last for several hours. Follow these instructions along with Activity/Diet recommendations noted above: * Do NOT do anything where dizziness or clumsiness would be dangerous. * Rest quietly at home today, then you can be up and about tomorrow. * Have a responsible person stay with you the rest of today. * You may have had an I.V. today. If so, you may take the dressing off later today. Recommendations Call your doctor if: * Trouble breathing * Continuous vomiting for more than 24 hours * Temperature above 101 degrees * Severe abdominal pain or bloating * Pain not relieved by pain medicine ordered * There is increased drainage or redness from any incision * A large amount of rectal bleeding greater than 2-3 tablespoons. (If you had a polyp/s removed or have hemorrhoids, a small amount of blood - from the rectum is to be expected.) * You have any unanswered questions or concerns. IN THE EVENT OF A SERIOUS EMERGENCY, GO TO THE NEAREST EMERGENCY ROOM Your discharge instructions were prepared by provider Jaya Murdock. Patient Instructions Signature Page Denzel Schneider Patient (or Guardian) Signature/Date: I have read and understand the instructions given to me by my caregivers. Caregiver/RN/Doctor Signature/Date: The above-named patient and/or guardian has received patient instructions on this date. + Original Patient Signature Page (only) stays with chart. Please make copy for patient.
--- NOTE | 2018-03-11 09:45 | GI REPORT ---
Procedure Date: 03/11/2018 9:19 AM Procedure: Colonoscopy Indications: Hematochezia Medicines: Monitored Anesthesia Care Complications: No immediate complications. Estimated Blood Loss: Estimated blood loss: none. Procedure: Pre-Anesthesia Assessment: - Prior to the procedure, a History and Physical was performed, and patient medications and allergies were reviewed. The patient's tolerance of previous anesthesia was also reviewed. The risks and benefits of the procedure and the sedation options and risks were discussed with the patient. All questions were answered, and informed consent was obtained. Prior Anticoagulants: The patient has taken aspirin, last dose was 2 days prior to procedure. ASA Grade Assessment: III - A patient with severe systemic disease. After reviewing the risks and benefits, the patient was deemed in satisfactory condition to undergo the procedure. After I obtained informed consent, the scope was passed under direct vision. Throughout the procedure, the patient's blood pressure, pulse, and oxygen saturations were monitored continuously. The scope was introduced through the anus and advanced to the terminal ileum. The colonoscopy was performed without difficulty. The patient tolerated the procedure well. The quality of the bowel preparation was good. The terminal ileum, ileocecal valve, appendiceal orifice, and rectum were photographed. Findings: The perianal and digital rectal examinations were normal. Two sessile polyps were found in the hepatic flexure and ascending colon. The polyps were 4 to 6 mm in size. These polyps were removed with a hot snare. Resection and retrieval were complete. 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 Impression: - Two 4 to 6 mm polyps at the hepatic flexure and in the ascending colon, removed with a hot snare. Resected and retrieved. - Multiple non-bleeding colonic angioectasias. Recommendation: - Resume previous diet. - Continue present medications. - Repeat colonoscopy for surveillance based on pathology results. - Return to primary care physician as previously scheduled. Jaya Murdock, DO 03/11/2018 9:45:27 AM This report has been signed electronically. Note Initiated On: 03/11/2018 9:19 AM I attest to the content of the Intraoperative Record and orders documented therein, exceptions below
--- NOTE | 2018-03-11 10:05 | Anesthesiology Progress Note ---
Anesthesia Post Op Note Date & Time Mar 11, 2018 at 10:05 Vital Signs Pain Intensity: 0 Vital Signs Past 12 Hours Date Time Temp Pulse Resp B/P (MAP) Pulse Ox O2 Delivery O2 Flow Rate FiO2 03/11/18 10:00 71 18 130/67 (88) 97 Room Air 03/11/18 09:45 36.5 81 16 140/68 (92) 97 Room Air 03/11/18 08:26 36.5 96 20 175/100 (125) 97 Room Air Notes Mental Status: alert / awake / arousable, participated in evaluation Pt Amnestic to Procedure: Yes Nausea / Vomiting: adequately controlled Pain: adequately controlled Airway Patency, RR, SpO2: stable & adequate BP & HR: stable & adequate Hydration State: stable & adequate Anesthetic Complications: no major complications apparent
[2018-03-11 10:15] VITALS: BP 126/78; PULSE 58; O2SAT 97
== END | disposition home or self-care (01) ==
LOC: C.GI 08:00
PROVIDERS: ATTEND Internal Medicine
DX: K92.1 Melena (principal); D12.2 Benign neoplasm of ascending colon; D12.3 Benign neoplasm of transverse colon; K62.7 Radiation proctitis; I10 Essential (primary) hypertension; E78.00 Pure hypercholesterolemia, unspecified; E11.9 Type 2 diabetes mellitus without complications; Z86.010 Personal history of colon polyps; Z79.82 Long term (current) use of aspirin

== ENCOUNTER → 2018-07-17 | Outpatient (CLI) | payer OTHER ==
[~2018-07-17] MED LIST changes: +CLIN1GEL TOP; +DOCU-94 PO; +FERR1TAB13 PO; -LIDOCAINE HCL 2% 2 ML VIAL (20MG/ML) ONE; -PROPOFOL IV EMULSION 10 MG/ML 20 ML VIAL IV ONE; -SODIUM CHLORIDE 0.9% 500ML 500 ML IV ONE
[2018-07-17 12:31] LABS: BASO % 0.7 %; BASO ABS # 0.04 K/uL (0-0.2); EOS % 7.8 %; EOS ABS # 0.46 K/uL (0-0.5); HEMATOCRIT 36.9 % (42-52); HEMOGLOBIN 11.9 g/dL (14.0-18.0); IG# 0.02 K/uL (0.00-0.02); LYMPH % 12.1 %; LYMPH ABS # 0.71 K/uL (1.2-3.4); MEAN CELL VOLUME 93.7 fL (80-100); MEAN CORPUSCULAR HEMOGLOBIN 30.2 pg (25-34); MEAN CORPUSCULAR HGB CONC 32.2 g/dl (32-36); MEAN PLATELET VOLUME 11.2 fL (7.4-10.4); MONO % 11.5 %; MONO ABS # 0.68 K/uL (0.11-0.59); NEUT % 67.6 %; NEUT ABS # 3.98 K/uL (1.4-6.5); PLATELET COUNT 206 K/uL (130-400); RED CELL DISTRIBUTION WIDTH CV 14.3 % (11.5-14.5); RED CELL DISTRIBUTION WIDTH SD 48.5 fL (36.4-46.3); WHITE BLOOD COUNT 5.89 K/uL (4.8-10.8)
[2018-07-17 12:47] LABS: ALBUMIN 3.3 gm/dl (3.4-5.0); ALKALINE PHOSPHATASE 58 U/L (45-117); ALT/SGPT 25 U/L (12-78); AST/SGOT 17 U/L (15-37); BLOOD UREA NITROGEN 20 mg/dl (7-18); CALCIUM 8.6 mg/dl (8.5-10.1); CARBON DIOXIDE 26 mmol/L (21-32); CHOLESTEROL 113 mg/dl (0-200); CREATININE 1.01 mg/dl (0.60-1.40); GLUCOSE 130 mg/dl (70-99); LDL CHOLESTEROL CALCULATED 52 mg/dl; SODIUM 143 mmol/L (136-145); TOTAL PROTEIN 6.6 gm/dl (6.4-8.2)
[2018-07-17 12:57] LABS: HEMOGLOBIN A1C 6.4 % (4.5-5.6)
== END | disposition home or self-care (01) ==
LOC: C.LABBFT 07:26
PROVIDERS: ATTEND Internal Medicine
DX: E11.9 Type 2 diabetes mellitus without complications (principal); D64.9 Anemia, unspecified; E78.5 Hyperlipidemia, unspecified

== ENCOUNTER 2025-02-03 15:47 | Inpatient (IN) ==
--- NOTE | 2025-02-03 16:19 | Emergency Department Note ---
History of Present Illness General Chief complaint: Fall Stated complaint: FALL, ANKLE DEFORM Time Seen by Provider: 02/03/25 16:07 History of Present Illness Maximum Pain Intensity: 1 This is an 84-year-old male presenting to the emergency department via EMS from home for evaluation of left ankle injury after fall at home. Patient states that he was wearing socks when he slipped on the carpeted steps going down stairs. He believes that he fell 3 or 4 steps, landing awkwardly. There is obvious deformity to the left ankle without bleeding. Patient was given IV fentanyl prehospital. Pulses are reportedly intact. The patient does not report any injury to his head, neck, chest, or arms. No lightheadedness or dizziness. His discomfort is rated a 1/10 at rest, but increases with movement. Home Medications Medication Instructions Recorded Confirmed Type alfuzosin 10 mg tablet,extended 10 mg PO QAM 05/12/19 02/03/25 History release 24 hr aspirin 81 mg tablet,delayed 81 mg PO HS 05/12/19 02/03/25 History release cyanocobalamin (vitamin B-12) 100 mcg subcut Q30D 05/12/19 02/03/25 History 1,000 mcg/mL injection kit desonide 0.05 % topical cream 1 appln topical BID PRN 05/26/19 02/03/25 History DIRECTED #1 g blood-glucose meter (Accu-Chek #1 ea 08/20/19 02/03/25 Rx Guide Glucose Meter) geriatric [id number] 1 tab PO QAM 10/06/19 02/03/25 History docusate sodium 100 mg capsule 200 mg PO HS 10/27/19 02/03/25 History betamethasone dipropionate 0.05 % 1 applic topical DAILY PRN . 10/11/20 02/03/25 History topical cream calcium citrate 200 mg PO BID 10/17/23 02/03/25 History lancets (Accu-Chek Fastclix Lancet #100 ea 11/13/23 02/03/25 Rx Drum) amlodipine 10 mg tablet 10 mg PO QPM #100 tabs 02/16/24 02/03/25 Rx blood sugar diagnostic (Accu-Chek #50 ea 04/14/24 02/03/25 Rx Guide test strips) spironolactone 25 1 tab PO QPM #90 tabs 06/21/24 02/03/25 Rx mg-hydrochlorothiazide 25 mg tablet glimepiride 1 mg tablet 1 mg PO QPM #90 tabs 08/12/24 02/03/25 Rx famotidine 20 mg tablet 20 mg PO BID #180 tabs 08/17/24 02/03/25 Rx metformin 500 mg tablet,extended 500 mg PO BID #180 tabs 09/09/24 02/03/25 Rx release 24 hr leuprolide [Lupron Depot] 1 dose IM .30 days 11/18/24 02/03/25 History losartan 50 mg tablet 50 mg PO BID #180 tabs 11/18/24 02/03/25 Rx atorvastatin 10 mg tablet 10 mg PO HS 02/03/25 02/03/25 History econazole nitrate 1 % topical cream 1 applic topical UD PRN FEET 02/03/25 02/03/25 History Allergies Allergy/AdvReac Type Severity Reaction Status Date / Time No Known Drug Allergies Allergy Verified 11/18/24 08:21 Past Med/Surg History Problem List (Updated 02/03/25 @ 18:49 by James Wynne PA-C) Fall down stairs (Acute) Closed fracture of distal end of left fibula and tibia (Acute) Closed fracture dislocation of left ankle (Acute) Ankle fracture, bimalleolar, closed Perirectal abscess Anemia Carotid artery stenosis SNHL (sensorineural hearing loss) (Acute) Squamous cell carcinoma of skin (Acute) Diabetes Prostate cancer (Chronic 12/18/15) HLD (hyperlipidemia) HTN (hypertension) Anemia hx 2019-used to get iron infusions Vitamin B12 deficiency (Acute) Tubular adenoma of colon (Acute) hx Polyneuropathy (Acute) Iron deficiency (Acute) Hemisensory deficit (Acute) Erectile dysfunction (Acute) Episodic lightheadedness (Acute) "only happens when driving on highways, no other time" BPH (benign prostatic hyperplasia) (Acute) GERD (gastroesophageal reflux disease) (Acute) Medical History Left buttock abscess I&D in office 11/04/23>reason for current anx History of COVID-19 10/2021>light cold symptoms>no current symptoms History of prostate cancer Hx of squamous cell carcinoma Diabetes mellitus, type 2 Cancer SKIN [id number] PROSTATE CANCER (RADIATON SEEDS AND RADIATION THERAPY) Surgical History Hx of right cataract extraction Hx of prostate biopsy under anesthesia for the bx and radiation seed implants History of local excision of skin lesion S/P vasectomy History of colonoscopy History of tooth extraction Family History Father Myocardial infarction Borderline diabetes mellitus COPD (chronic obstructive pulmonary disease) Mother Breast cancer Parkinsons disease Brother Coronary heart disease Hx of CABG Hypertension Sister Thyroid cancer Osteoarthritis Aunt Diabetes Uncle Heart disease Other No family history of adverse response to anesthesia Prostate cancer Stroke Denies family history of Colorectal cancer Social History Smoking Status: Never smoker Second Hand Exposure: Yes (hx as child); Do You Dip or Chew Tobacco: No; Hx Alcohol Use: No Hx Substance Use: No Preferred Language: Macanese Communication Ability: Effective Hearing Ability: Normal Ceramic Chemist Required: No Beliefs That Will Affect Care: None marital status: / Current Living Situation: Alone current occupational status: retired current occupation: Retired Oct 2023 from parttime job. How many Children do You have: 3 Feels Safe at Home: Yes Childhood Exposure to Second-Hand Smoke: Yes Diet: diabetic and regular caffeine: Yes during the past year weight has: remained stable Dental Care, Regularly: Yes Physical Activity Frequency: 1-2 Times per Week Seatbelt Use: always Sunscreen Use: Yes Assistive Devices: Glasses Review of Systems A total of 10 systems reviewed and were otherwise negative Physical Exam Vital Signs Vital Signs - 24 hr 02/03/25 15:54 02/03/25 16:29 02/03/25 17:49 Temperature 37.0 C Temperature Source Oral Pulse Rate 100 H 94 H Pulse Rate [Apical] 96 H Pulse Strength [Apical] Normal Respiratory Rate 16 22 Respiratory Effort / Characteristics Non-Labored Spontaneous Respiratory Depth Normal Respiratory Pattern Regular Blood Pressure 164/81 H Blood Pressure [Right Arm] 162/56 H Blood Pressure Mean 108 Blood Pressure Mean [Right Arm] 91 Blood Pressure Position Semi-fowlers Blood Pressure Position [Right Arm] Lying Pulse Oximetry 97 99 Oxygen Delivery Method Room Air Sepsis Recent Fever Within 48 Hours No Sepsis New/Unexplained Change in Mental Status No Sepsis Action Taken by Nursing No Action Required VITALS: Vitals are noted on the nurse's note and reviewed by myself. Vital signs stable. GENERAL: Well-developed, well-nourished, white male, who is in no acute distress and resting comfortably. Patient is cooperative with the examination. HEAD: Normocephalic atraumatic. NECK: Supple without nuchal rigidity. No lymphadenopathy. No thyromegaly. Cervical spine is nontender. HEART: Regular rate and rhythm without murmurs gallops or rubs. LUNGS: Clear to auscultation bilaterally without wheezes, rales or rhonchi. No retractions or accessory muscle use. MUSCULOSKELETAL: Significant deformity at the left ankle is noted. The foot is essentially turned 90 degrees laterally. There is tenting along the medial aspect of the extremity. Neurovascular status appears intact. No evidence of open dislocation or fracture. No tenderness to the remaining extremities. NEURO: Patient was alert and oriented to person place and time. CN II through XII grossly intact. GCS 15. Procedures Free Text Procedures Definitive Fracture Care Note: The patient has a fracture as follow: Bimalleolar left tibia/fibular fracture Plan: Immobilized with Ortho-Glass splint Analgesia: IV fentanyl Specialty Follow up: Orthopedics Orthopedic Joint Reduction Joint #1: Time Out Performed: Yes Side: left Joint Reduction Location: ankle Technique used: traction/counter-traction and direct manipulation Post-reduction neuro exam: intact Post-reduction vascular: intact Post Reduction X-Ray Obtained: Yes Post Reduction X-Ray Results: reduced Splint Applied: Yes Patient Tolerated Procedure: well and no complications Course Administered Medications Acetaminophen (Acetaminophen 325 Mg Tab) 650 mg PO Q6H FRANCISCA Stop: 03/05/25 17:59 Last Admin: 02/03/25 18:09 Dose: 650 mg Documented By: ANGEL Medical Decision Making Differential Diagnosis Differential diagnosis includes, but is not limited to: Sprain, strain, fracture, dislocation, subluxation, contusion, and others Laboratory Data 02/03/25 16:15 02/03/25 16:15 Lab Results 02/03/25 Range/Units 16:15 WBC 9.96 (4.8-10.8) K/ul RBC 3.54 L (4.70-6.10) M/uL Hgb 11.3 L (14.0-18.0) g/dl Hct 33.3 L (42.0-52.0) % MCV 94.1 (80.0-100.0) fL MCH 31.9 (25.0-34.0) pg MCHC 33.9 (32.0-36.0) g/dL RDW Std Deviation 44.2 (36.4-46.3) fL RDW Coeff of Gino 12.8 (11.5-14.5) % Plt Count 221 (130-400) K/uL MPV 10.5 (9.4-12.4) fL Immature Gran % (Auto) 0.6 % Neut % (Auto) 77.3 % Lymph % (Auto) 9.2 % [place] % (Auto) 8.5 % Eos % (Auto) 3.9 % Baso % (Auto) 0.5 % Neut # (Auto) 7.69 H (1.40-6.50) K/uL Lymph # (Auto) 0.92 L (1.20-3.40) K/uL [place] # (Auto) 0.85 H (0.11-0.59) K/uL Eos # (Auto) 0.39 (0.00-0.50) K/uL Baso # (Auto) 0.05 (0.00-0.20) K/uL Immature Gran # (Auto) 0.06 (0.01-0.20) K/uL Sodium 137 (136-145) mmol/L Potassium 4.1 (3.5-5.1) mmol/L Chloride 104 (98-107) mmol/L Carbon Dioxide 21 (21-32) mmol/L Anion Gap 12 H (3-11) BUN 35 H (6-23) mg/dl Creatinine 1.25 (0.6-1.4) mg/dl Est Cr Clr Drug Dosing 52.6 ml/min eGFR 56.78 BUN/Creatinine Ratio 28.0 H (10-20) Glucose 263 H (70-99(Fasting)) mg/dl Calcium 9.5 (8.6-10.3) mg/dl Total Bilirubin 0.2 (0.2-1.0) mg/dl AST 18 (13-39) U/L ALT 16 (7-52) U/L Alkaline Phosphatase 66 (34-104) U/L Total Protein 6.6 (6.0-8.3) gm/dl Albumin 3.9 (3.4-5.0) gm/dl Globulin 2.7 (2.5-4.0) gm/dl Albumin/Globulin Ratio 1.4 (0.9-2) Imaging Data Radiologist's Impression: Ankle X-Ray 02/03/25 16:13 INDICATION: Pain and injury. TECHNIQUE: 3 views of the left ankle. COMPARISON: No relevant priors. FINDINGS: Displaced, oblique fracture of the distal fibula. Remaining osseous structures intact. No dislocation. Prominent calcifications adjacent to the medial malleolus. Small plantar calcaneal enthesophyte. Soft tissue swelling. IMPRESSION: Displaced, oblique fracture of the distal fibula. Electronically signed by Julio Cesar Nicole 02-03-2025 4:32 PM Tibia/Fibula X-Ray 02/03/25 16:25 Clinical History: Fracture 3 views of the left lower leg are submitted for review. Findings: There is an acute oblique fracture of the distal fibular shaft and metaphysis with approximately one half shaft width displacement. There are bone fragments inferior to the medial malleolus that may be due to old injury. No subluxation or dislocation is seen. There is mild joint space narrowing in the medial compartment of the left knee. There are small patellar osteophytes also. There is a plantar calcaneal spur. No other osseous abnormality is identified. There are no radiopaque foreign bodies. Vascular calcifications are present Impression: 1. Acute fracture of the distal left fibula 2. Fragmentation of the medial malleolus that may be due to old injury 3. Mild left knee osteoarthritis 4. Calcaneal spur Electronically signed by John Ramirez 02-03-2025 4:55 PM [facility] Narrative Physical exam and history were performed. Nursing notes, EMR, and Medication List were personally reviewed. No social concerns were identified as barriers to patients care. Patient appears to have fallen down stairs with subsequent injury to his left ankle. Patient was seen immediately on arrival to the ER, where he has significant tenting of the skin medially with obvious dislocation laterally at the ankle joint. There is no bleeding and this appears to be a closed injury. The patient has been given fentanyl by EMS and in an effort to preserve neurovascular status I did immediately perform reduction at bedside. This did result in significant improvement of the anatomic position clinically, and relieved pressure off the medial skin that was previously tenting. IV access has been established and labs obtained. X-rays were ordered and ice packs applied. Patient's blood work is as above and was reviewed. He does not have a significantly elevated white blood cell count, gross anemia, bandemia, or significant electrolyte imbalance. Transaminases are not diagnostic. X-rays were performed and reviewed by myself and radiology. He does appear to have a closed bimalleolar fracture without proximal extension. Patient was offered additional analgesia, however he feels much better after the reduction. Case was discussed with orthopedics, Froilan Collins, who is covering for Dr. Martinez. Patient will likely need surgical intervention. Fortunately the patient is not felt to be comfortable going home. He is a significant fall risk. Family is also concerned that he may not do well at home. I did discuss the case with on-call hospitalist team, who did not evaluate the patient here in the ER. Ultimately the patient was placed in an Ortho-Glass splint with neurovascular status remaining intact. Please see the hospitalist dictation for further patient course, plan, disposition. The chart was completed utilizing [employer] Speech Voice Recognition Software. Grammatical errors, random word insertions, pronoun errors, and incomplete sentences are an occasional consequence of this system due to software limitations, ambient noise, and hardware issues. Any formal questions or concerns about the content, text, or information contained within the body of this dictation should be directly addressed to the provider for clarification. Impression & Plan Closed fracture dislocation of left ankle, Closed fracture of distal end of left fibula and tibia, Fall down stairs Discharge Plan Visit Data Chief Complaint: Fall Stated Complaint: FALL, ANKLE DEFORM ED Provider: Josué Onofre ED Midlevel Provider: James Wynne Discharge Problem: Closed fracture dislocation of left ankle, Closed fracture of distal end of left fibula and tibia, Fall down stairs Forms Stand Alone Forms: My YoungCurrent Prescriptions Prescriptions: No Action (DME) blood-glucose meter [Accu-Chek Guide Glucose Meter] misc See Dose Instructions .ROUTE .MEDSUPPLY Qty: 1 0RF Dose Instruction: As directed Rx Instructions: CHECK BLOOD SUGARS 4 TIMES DAILY (DME) lancets [Accu-Chek Fastclix Lancet Drum] Misc See Dose Instructions .ROUTE .MEDSUPPLY Qty: 100 5RF Dose Instruction: As directed Rx Instructions: TEST 4 TIMES DAILY amlodipine 10 mg tablet 10 mg PO QPM Qty: 100 3RF (DME) Accu-Chek Guide test strips Strip See Dose Instructions .ROUTE .MEDSUPPLY Qty: 50 5RF Dose Instruction: As directed Rx Instructions: USE TO TEST BLOOD SUGARS ONCE DAILY spironolacton-hydrochlorothiaz 25-25 mg tablet 1 tab PO QPM Qty: 90 3RF glimepiride 1 mg tablet 1 mg PO QPM Qty: 90 3RF famotidine 20 mg tablet 20 mg PO BID Qty: 180 3RF metformin 500 mg tablet extended release 24 hr 500 mg PO BID Qty: 180 3RF geriatric qwisuobl-snva-qiui tablet 1 tab PO QAM desonide 0.05 % cream 1 appln topical BID PRN (Reason: DIRECTED) Qty: 1 Patient Comments: APPLY SPARINGLY TO AFFECTED AREA(S) TWICE DAILY betamethasone dipropionate 0.05 % cream 1 applic topical DAILY PRN (Reason: .) docusate sodium 100 mg capsule 200 mg PO HS leuprolide [Lupron Depot] 1 dose IM .30 days losartan 50 mg tablet 50 mg PO BID Qty: 180 3RF alfuzosin 10 mg Tablet Extended Release 24 Hr 10 mg PO QAM cyanocobalamin (vitamin B-12) 1,000 mcg/mL Kit 100 mcg SUBCUT Q30D aspirin 81 mg Tablet,Delayed Release (Dr/Ec) 81 mg PO HS calcium citrate 200 mg (950 mg) Tablet 200 mg PO BID atorvastatin 10 mg tablet 10 mg PO HS econazole nitrate 1 % cream 1 applic TOPICAL UD PRN (Reason: FEET) Referrals Referrals: José Mixon MD [Primary Care Provider] -
--- NOTE | 2025-02-03 16:33 | XRay Report ---
INDICATION: Pain and injury. TECHNIQUE: 3 views of the left ankle. COMPARISON: No relevant priors. FINDINGS: Displaced, oblique fracture of the distal fibula. Remaining osseous structures intact. No dislocation. Prominent calcifications adjacent to the medial malleolus. Small plantar calcaneal enthesophyte. Soft tissue swelling. IMPRESSION: Displaced, oblique fracture of the distal fibula. Electronically signed by Julio Cesar Nicole 02-03-2025 4:32 PM
[2025-02-03 16:44] LABS: Basophils # (auto) 0.05 K/uL (0.00-0.20); Basophils % (auto) 0.5 %; Eosinophils # (auto) 0.39 K/uL (0.00-0.50); Eosinophils % (auto) 3.9 %; Hematocrit (blood only) 33.3 % (42.0-52.0); Hemoglobin 11.3 g/dl (14.0-18.0); Immature Granulocytes # (auto) 0.06 K/uL (0.01-0.20); Immature Granulocytes % (auto) 0.6 %; Lymphocytes # (auto) 0.92 K/uL (1.20-3.40); Lymphocytes % (auto) 9.2 %; Mean Corpuscular Hemoglobin 31.9 pg (25.0-34.0); Mean Corpuscular Hgb Conc 33.9 g/dL (32.0-36.0); Mean Corpuscular Volume 94.1 fL (80.0-100.0); Mean Platelet Volume 10.5 fL (9.4-12.4); Monocytes # (auto) 0.85 K/uL (0.11-0.59); Monocytes % (auto) 8.5 %; Neutrophils # (auto) 7.69 K/uL (1.40-6.50); Neutrophils % (auto) 77.3 %; Platelet Count 221 K/uL (130-400); RDW Coefficient of Variation 12.8 % (11.5-14.5); RDW Standard Deviation 44.2 fL (36.4-46.3); Red Blood Count 3.54 M/uL (4.70-6.10); White Blood Count 9.96 K/ul (4.8-10.8)
[2025-02-03 16:56] LABS: Potassium 4.1 mmol/L (3.5-5.1)
--- NOTE | 2025-02-03 16:56 | XRay Report ---
Clinical History: Fracture 3 views of the left lower leg are submitted for review. Findings: There is an acute oblique fracture of the distal fibular shaft and metaphysis with approximately one half shaft width displacement. There are bone fragments inferior to the medial malleolus that may be due to old injury. No subluxation or dislocation is seen. There is mild joint space narrowing in the medial compartment of the left knee. There are small patellar osteophytes also. There is a plantar calcaneal spur. No other osseous abnormality is identified. There are no radiopaque foreign bodies. Vascular calcifications are present Impression: 1. Acute fracture of the distal left fibula 2. Fragmentation of the medial malleolus that may be due to old injury 3. Mild left knee osteoarthritis 4. Calcaneal spur Electronically signed by John Ramirez 02-03-2025 4:55 PM
[2025-02-03 16:57] LABS: Albumin Globulin Ratio 1.4 (0.9-2); Albumin Level 3.9 gm/dl (3.4-5.0); Bilirubin,Total 0.2 mg/dl (0.2-1.0); Calcium 9.5 mg/dl (8.6-10.3); Creatinine Clr Calc Pharmacy 52.6 ml/min; Globulin 2.7 gm/dl (2.5-4.0); Total Protein 6.6 gm/dl (6.0-8.3)
--- NOTE | 2025-02-03 17:32 | History & Physical Report ---
Date of Service February 03, 2025 Assessment & Plan (1) Ankle fracture, bimalleolar, closed: (2) Diabetes: (3) HLD (hyperlipidemia): (4) HTN (hypertension): (5) Anemia: Plan 84-year-old man who had a mechanical fall down 3-4 steps sustaining a bimalleolar left ankle fracture/disc location and left fibula fracture, admitted for orthopedic evaluation anticipate this will be surgical # bimalleolar ankle fracture / dislocation, left fibular fracture - ED reduced the dislocation and placed splint - ED contacted orthopedics on-call for consultation - gentle IV fluids, n.p.o. after midnight - maintain nonweightbearing, elevate, pain control with scheduled acetaminophen, opioids if necessaryordered IV morphine PRN. He avoids nsaids because of GI intolerance preoperative evaluationI see no medical contraindications to proceeding with urgent/ nonelective surgery as planned. He has good exercise tolerance for his age and can go up two flights of stairs without chest pain or excessive dyspnea. No known cardiac history. Sinus with pac on tele, EKG pending. No evidence of unstable angina or heart failure on physical exam. 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 hemoglobin 11.3 is his baseline CKD stage IIIcreatinine today 1.25 with GFR of 56, reviewed prior labs at baseline. prostate cancer with biochemical recurrencefollowed by [facility]. History of EBRT and Lupron therapy when diagnosed in 2018. Stable many years then Lupron reinitiated August 2021 when PSA started to rise BPH I discussed code status with him and he is DNR His daughter was at bedside and is updated on the plan of care History of Present Illness Chief Complaint: left ankle pain Primary Care Provider: José Mixon MD 84 y/o fell down stairs because of slipping on carpet wearing socks. Fell down 3-4 steps, landed awkwardly and resultant severe L ankle pain and deformity. He denies hitting or hurting anything else. did not hit his head or injure his neck. He did not have any preceding lightheadedness dizziness or syncope. He did not lose consciousness after the fall. currently he has intermittent moderate/brief left ankle pain. He has not had anything for pain yet. on initial ED exam there was obvious L ankle fracture dislocation. Not open, skin tenting. Reduced by ED. Current xrays are post-reduction Bimalleolar and L fibular fracture. ED provider spoke with Elvin Collins for ortho ED placed splint he does not have any cardiac history, he is able to go up 2 flights of stairs does get a little bit tired and winded and has to rest after 2 flights, this does not cause any chest pain or pressure. He does not get exertional chest pain or pressure when walking. He does have a longstanding intermittent dull chest heaviness left lateral chest near the axilla, he does not relate this to any particular thing and it does not appear with exertion. he does have chronic numbness and tingling in his strived on the left side of his body including left arm left leg and sometimes face this is been going on since he was 20 years old and has been unchanged. He also has some chronic low back pain radiating toward buttock/hip that started after he took a similar fall down a few stairs while also wearing socks last summer. Otherwise he denies other symptoms including shortness of breath cough abdominal pain nausea vomiting diarrhea difficulty urinating dysuria. Allergies Allergy/AdvReac Type Severity Reaction Status Date / Time No Known Drug Allergies Allergy Verified 11/18/24 08:21 Home Medications Medication Instructions Recorded Confirmed Type alfuzosin 10 mg tablet,extended 10 mg PO QAM 05/12/19 02/03/25 History release 24 hr aspirin 81 mg tablet,delayed 81 mg PO HS 05/12/19 02/03/25 History release cyanocobalamin (vitamin B-12) 100 mcg subcut Q30D 05/12/19 02/03/25 History 1,000 mcg/mL injection kit desonide 0.05 % topical cream 1 appln topical BID PRN 05/26/19 02/03/25 History DIRECTED #1 g blood-glucose meter (Accu-Chek #1 ea 08/20/19 02/03/25 Rx Guide Glucose Meter) geriatric [id number] 1 tab PO QAM 10/06/19 02/03/25 History docusate sodium 100 mg capsule 200 mg PO HS 10/27/19 02/03/25 History betamethasone dipropionate 0.05 % 1 applic topical DAILY PRN . 10/11/20 02/03/25 History topical cream calcium citrate 200 mg PO BID 10/17/23 02/03/25 History lancets (Accu-Chek Fastclix Lancet #100 ea 11/13/23 02/03/25 Rx Drum) amlodipine 10 mg tablet 10 mg PO QPM #100 tabs 02/16/24 02/03/25 Rx blood sugar diagnostic (Accu-Chek #50 ea 04/14/24 02/03/25 Rx Guide test strips) spironolactone 25 1 tab PO QPM #90 tabs 06/21/24 02/03/25 Rx mg-hydrochlorothiazide 25 mg tablet glimepiride 1 mg tablet 1 mg PO QPM #90 tabs 08/12/24 02/03/25 Rx famotidine 20 mg tablet 20 mg PO BID #180 tabs 08/17/24 02/03/25 Rx metformin 500 mg tablet,extended 500 mg PO BID #180 tabs 09/09/24 02/03/25 Rx release 24 hr leuprolide [Lupron Depot] 1 dose IM .30 days 11/18/24 02/03/25 History losartan 50 mg tablet 50 mg PO BID #180 tabs 11/18/24 02/03/25 Rx atorvastatin 10 mg tablet 10 mg PO HS 02/03/25 02/03/25 History econazole nitrate 1 % topical cream 1 applic topical UD PRN FEET 02/03/25 02/03/25 History Past Med/Surg History Problem List (Updated 02/03/25 @ 18:32 by Estela Acosta MD) Ankle fracture, bimalleolar, closed Perirectal abscess Anemia Carotid artery stenosis SNHL (sensorineural hearing loss) (Acute) Squamous cell carcinoma of skin (Acute) Diabetes Prostate cancer (Chronic 12/18/15) HLD (hyperlipidemia) HTN (hypertension) Anemia hx 2019-used to get iron infusions Vitamin B12 deficiency (Acute) Tubular adenoma of colon (Acute) hx Polyneuropathy (Acute) Iron deficiency (Acute) Hemisensory deficit (Acute) Erectile dysfunction (Acute) Episodic lightheadedness (Acute) "only happens when driving on highways, no other time" BPH (benign prostatic hyperplasia) (Acute) GERD (gastroesophageal reflux disease) (Acute) Medical History Left buttock abscess I&D in office 11/04/23>reason for current anx History of COVID-19 10/2021>light cold symptoms>no current symptoms History of prostate cancer Hx of squamous cell carcinoma Diabetes mellitus, type 2 Cancer SKIN [id number] PROSTATE CANCER (RADIATON SEEDS AND RADIATION THERAPY) Surgical History Hx of right cataract extraction Hx of prostate biopsy under anesthesia for the bx and radiation seed implants History of local excision of skin lesion S/P vasectomy History of colonoscopy History of tooth extraction Family History Father Myocardial infarction Borderline diabetes mellitus COPD (chronic obstructive pulmonary disease) Mother Breast cancer Parkinsons disease Brother Coronary heart disease Hx of CABG Hypertension Sister Thyroid cancer Osteoarthritis Aunt Diabetes Uncle Heart disease Other No family history of adverse response to anesthesia Prostate cancer Stroke Denies family history of Colorectal cancer Social History Smoking Status: Never smoker Second Hand Exposure: Yes (hx as child); Do You Dip or Chew Tobacco: No; Hx Alcohol Use: No Hx Substance Use: No Preferred Language: Lao Communication Ability: Effective Hearing Ability: Normal Escalator Mechanic Required: No Beliefs That Will Affect Care: None marital status: / Current Living Situation: Alone current occupational status: retired current occupation: Retired Oct 2023 from parttime job. How many Children do You have: 3 Feels Safe at Home: Yes Childhood Exposure to Second-Hand Smoke: Yes Diet: diabetic and regular caffeine: Yes during the past year weight has: remained stable Dental Care, Regularly: Yes Physical Activity Frequency: 1-2 Times per Week Seatbelt Use: always Sunscreen Use: Yes Assistive Devices: Glasses Review of Systems 2 Review of Systems: All systems reviewed & are unremarkable except as noted in HPI & below Physical Exam 2 Physical Exam: PHYSICAL EXAMINATION Last 24h vital signs reviewed, see documentation in flowsheet General: comfortable appearing, no distress, Lying on gurney in ED HEENT: Normocephalic, atraumatic, pupils round and equal, sclerae anicteric, no conjunctival injection, moist mucus membranes Lungs: Normal respiratory effort. Clear to auscultation bilaterally. No RRW Heart: Regular rate and rhythm, no murmurs. No JVD no carotid bruits Abdomen: Soft, nontender, nondistended. Bowel sounds present. Extremities: Warm, dry, well-perfused. trace bilateral lower extremity edema. left lower extremity is in a splint, his toes are warm and well-perfused with good cap refill Neuro: Alert and oriented x 4, face symmetric, moves 4 extremities well Psych: Normal affect and behavior Results & Data Results & Data Vital Signs (Past 12 Hours) Vital Signs Temp Pulse Resp BP Pulse Ox 02/03/25 16:29 94 H 02/03/25 15:54 37.0 C 100 H 16 164/81 H 97 Laboratory Results 02/03/25 16:15 02/03/25 16:15 no leukocytosis hemoglobin of 11.3 it is at his baseline and unchanged from December 2024 creatinine unchanged from his baseline at 1.25 LFTs and calcium were normal Diagnostic Findings I personally reviewed the left ankle x-ray film there is a distal fibular fracture the dislocation has been reduced Ankle X-Ray 02/03/25 16:13 INDICATION: Pain and injury. TECHNIQUE: 3 views of the left ankle. COMPARISON: No relevant priors. FINDINGS: Displaced, oblique fracture of the distal fibula. Remaining osseous structures intact. No dislocation. Prominent calcifications adjacent to the medial malleolus. Small plantar calcaneal enthesophyte. Soft tissue swelling. IMPRESSION: Displaced, oblique fracture of the distal fibula. Electronically signed by Julio Cesar Nicole 02-03-2025 4:32 PM Tibia/Fibula X-Ray 02/03/25 16:25 Clinical History: Fracture 3 views of the left lower leg are submitted for review. Findings: There is an acute oblique fracture of the distal fibular shaft and metaphysis with approximately one half shaft width displacement. There are bone fragments inferior to the medial malleolus that may be due to old injury. No subluxation or dislocation is seen. There is mild joint space narrowing in the medial compartment of the left knee. There are small patellar osteophytes also. There is a plantar calcaneal spur. No other osseous abnormality is identified. There are no radiopaque foreign bodies. Vascular calcifications are present Impression: 1. Acute fracture of the distal left fibula 2. Fragmentation of the medial malleolus that may be due to old injury 3. Mild left knee osteoarthritis 4. Calcaneal spur Electronically signed by John Ramirez 02-03-2025 4:55 PM PG Care Time/CCT Total # of Minutes Spent Total Time Spent with Patient: Total time spent is greater than 50% in coordination of care (as documented) at patient's floor/unit and/or counseling patient: Coding Level of Care Code 76460 INT INP/OBS CARE 2/55MIN Diagnoses Ankle fracture, bimalleolar, closed S82.843A Diabetes E11.9 Diabetes mellitus type: type 2 Diabetes mellitus joint terminal attack controller insulin use: without skilled nursing use Diabetes mellitus complication status: with kidney complications Diabetes mellitus complication detail: with chronic kidney disease Chronic kidney disease stage 3 subtype: stage 3a (GFR 45-59) HLD (hyperlipidemia) E78.5 HTN (hypertension) I10 Anemia D64.9 (2) Diabetes Diabetes mellitus type: type 2 Diabetes mellitus joint terminal attack controller insulin use: w ithout joint terminal attack controller use Diabetes mellitus complication status: with kidney complications Diabetes mellitus complication detail: with chronic kidney disease Chronic kidney disease stage 3 subtype: stage 3a (GFR 45-59)
[2025-02-03] MEDS ORDERED: MoRPHine SULFATE 2 MG/ML CARP IV PRN ×2 (17:39→18:00)
[2025-02-03] MEDS ORDERED: ACETAMINOPHEN 325 MG TAB PO SCH (17:45)
--- NOTE | 2025-02-03 17:56 | Emergency Department Note ---
ED Visit Note The patient was seen and examined with rosey. I performed a substantive portion of all aspects of the medical decision making and agree with the history, physical and findings. Please see the note for disposition and details. .
[2025-02-03] MEDS: ACETAMINOPHEN 325 MG TAB PO SCH (18:09)
[2025-02-03] MEDS ORDERED: GLUCOSE 10 TAB/TUBE PO PRN (20:44)
[2025-02-03] MEDS ORDERED: ALUMINUM/MAGNESIUM SUSP 30 ML UDC PO PRN (20:44)
[2025-02-03] MEDS ORDERED: ONDANSETRON INJ 2 MG/ML 2 ML VIAL IV PRN (20:44)
[2025-02-03] MEDS ORDERED: ACETAMINOPHEN 325 MG TAB PO PRN (20:44)
[2025-02-03] MEDS ORDERED: MAGNESIUM HYDROXIDE SUSP 30 ML UDC PO PRN (20:44)
[2025-02-03] MEDS ORDERED: GLUCAGON FOR INJ 1 MG VIAL SQ PRN (20:44)
[2025-02-03] MEDS ORDERED: DEXTROSE 50% 50 ML SYRINGE IV PRN (20:44)
[2025-02-03] MEDS ORDERED: CARBOHYDRATES FOR HYPOGLYCEMIA PO PRN (20:44)
[2025-02-03] MEDS ORDERED: GLUCOSE 40% GEL 15 GM TUBE PO PRN (20:44)
[2025-02-03] MEDS: amLODIPine BESYLATE 5 MG TAB PO SCH (22:01)
[2025-02-03] MEDS: ATORVASTATIN 10 MG TAB PO SCH (22:01)
[2025-02-03] MEDS: ASPIRIN 81 MG ECTAB PO SCH (22:01)
[2025-02-03] MEDS: LOSARTAN POTASSIUM 50 MG TAB PO SCH (22:02)
[2025-02-03] MEDS: SODIUM CHLORIDE 0.9% 500 ML IV SCH (22:10)
[2025-02-03] MEDS: INSULIN ASPART PER UNIT CHARGE SC SCH (22:10)
[2025-02-03] MEDS: FAMOTIDINE 20 MG TAB PO SCH (22:11)
--- NOTE | 2025-02-04 07:21 | Electrocardiogram Report ---
Test Reason : Blood Pressure : */* mmHG Vent. Rate : 91 BPM Atrial Rate : 91 BPM P-R Int : 290 ms QRS Dur : 86 ms QT Int : 360 ms P-R-T Axes : 45 43 63 degrees QTcB Int : 442 ms Sinus rhythm with 1st degree A-V block Otherwise normal ECG No previous ECGs available Confirmed by Omar Walton ([id number]) on 02/04/2025 7:21:10 AM Referred By: REFERRED SELF Confirmed By: Omar Walton
[2025-02-04] MEDS: TAMSULOSIN HCL 0.4 MG CAP PO SCH (08:31)
[2025-02-04] MEDS: POLYETHYLENE (MIRALAX) 17 GM PACK PO SCH (08:32)
--- NOTE | 2025-02-04 09:15 | Orthopedic Consultation ---
Date of Service February 04, 2025 Assessment & Plan (1) Closed fracture of left distal fibula: Plan X-rays demonstrate an acute fracture of the left distal fibula. The medial bony findings likely represent an old injury. There is also noted to be some widening of the ankle mortise, which may represent acute syndesmotic disruption vs. chronic changes. Plan is to take the patient to the operating room today for open reduction internal fixation of the fracture. Determination of specific performing surgeon is pending. Maintain NPO status. Patient has been seen this morning by Dr. Martinez, and he is also going to be seen later today by Dr. Hay. Patient seen and examined, discussed with patient recommended treatment of open reduction term fixation of fibula fracture. History of Present Illness Reason for Consultation: . Requesting Physician: . Attending Physician: Estela Acosta MD 02/03/2025 ED provider note: This is an 84-year-old male presenting to the emergency department via EMS from home for evaluation of left ankle injury after fall at home. Patient states that he was wearing socks when he slipped on the carpeted steps going down stairs. He believes that he fell 3 or 4 steps, landing awkwardly. There is obvious deformity to the left ankle without bleeding. Patient was given IV fentanyl prehospital. Pulses are reportedly intact. The patient does not report any injury to his head, neck, chest, or arms. No lightheadedness or dizziness. His discomfort is rated a 1/10 at rest, but increases with movement. -------- 02/03/2025 hospitalist note: 84 y/o fell down stairs because of slipping on carpet wearing socks. Fell down 3-4 steps, landed awkwardly and resultant severe L ankle pain and deformity. He denies hitting or hurting anything else. did not hit his head or injure his neck. He did not have any preceding lightheadedness dizziness or syncope. He did not lose consciousness after the fall. currently he has intermittent moderate/brief left ankle pain. He has not had anything for pain yet. on initial ED exam there was obvious L ankle fracture dislocation. Not open, skin tenting. Reduced by ED. Current xrays are post-reduction Bimalleolar and L fibular fracture. ED provider spoke with Elvin Pozniak for ortho ED placed splint he does not have any cardiac history, he is able to go up 2 flights of stairs does get a little bit tired and winded and has to rest after 2 flights, this does not cause any chest pain or pressure. He does not get exertional chest pain or pressure when walking. He does have a longstanding intermittent dull chest heaviness left lateral chest near the axilla, he does not relate this to any particular thing and it does not appear with exertion. he does have chronic numbness and tingling in his strived on the left side of his body including left arm left leg and sometimes face this is been going on since he was 20 years old and has been unchanged. He also has some chronic low back pain radiating toward buttock/hip that started after he took a similar fall down a few stairs while also wearing socks last summer. Otherwise he denies other symptoms including shortness of breath cough abdominal pain nausea vomiting diarrhea difficulty urinating dysuria. [facility] was consulted for further management of the left ankle fracture. As reported above, the patient was navigating going down some stairs at his home while wearing socks, and he slipped and fell, seemingly going down about 3-4 steps and landing awkwardly on the left ankle/foot. X-rays were taken in the ED, which represent an acute left distal fibula fracture. Patient was placed into a posterior short leg splint. This morning, the patient says that his pain is relatively well-controlled. He does wish to have this fracture surgically fixed. Allergies Allergy/AdvReac Type Severity Reaction Status Date / Time No Known Drug Allergies Allergy Verified 11/18/24 08:21 Home Medications Medication Instructions Recorded Confirmed Type alfuzosin 10 mg tablet,extended 10 mg PO QAM 05/12/19 02/03/25 History release 24 hr aspirin 81 mg tablet,delayed 81 mg PO HS 05/12/19 02/03/25 History release cyanocobalamin (vitamin B-12) 100 mcg subcut Q30D 05/12/19 02/03/25 History 1,000 mcg/mL injection kit desonide 0.05 % topical cream 1 appln topical BID PRN 05/26/19 02/03/25 History DIRECTED #1 g blood-glucose meter (Accu-Chek #1 ea 08/20/19 02/03/25 Rx Guide Glucose Meter) geriatric [id number]-[id number] 1 tab PO QAM 10/06/19 02/03/25 History docusate sodium 100 mg capsule 200 mg PO HS 10/27/19 02/03/25 History betamethasone dipropionate 0.05 % 1 applic topical DAILY PRN . 10/11/20 02/03/25 History topical cream calcium citrate 200 mg PO BID 10/17/23 02/03/25 History lancets (Accu-Chek Fastclix Lancet #100 ea 11/13/23 02/03/25 Rx Drum) amlodipine 10 mg tablet 10 mg PO QPM #100 tabs 02/16/24 02/03/25 Rx blood sugar diagnostic (Accu-Chek #50 ea 04/14/24 02/03/25 Rx Guide test strips) spironolactone 25 1 tab PO QPM #90 tabs 06/21/24 02/03/25 Rx mg-hydrochlorothiazide 25 mg tablet glimepiride 1 mg tablet 1 mg PO QPM #90 tabs 08/12/24 02/03/25 Rx famotidine 20 mg tablet 20 mg PO BID #180 tabs 08/17/24 02/03/25 Rx metformin 500 mg tablet,extended 500 mg PO BID #180 tabs 09/09/24 02/03/25 Rx release 24 hr leuprolide [Lupron Depot] 1 dose IM .30 days 11/18/24 02/03/25 History losartan 50 mg tablet 50 mg PO BID #180 tabs 11/18/24 02/03/25 Rx atorvastatin 10 mg tablet 10 mg PO HS 02/03/25 02/03/25 History econazole nitrate 1 % topical cream 1 applic topical UD PRN FEET 02/03/25 02/03/25 History Past Med/Surg History Problem List (Updated 02/04/25 @ 09:26 by Emil Parra PA-C) Closed fracture of left distal fibula Fall down stairs (Acute) Closed fracture of distal end of left fibula and tibia (Acute) Closed fracture dislocation of left ankle (Acute) Ankle fracture, bimalleolar, closed Perirectal abscess Anemia Carotid artery stenosis SNHL (sensorineural hearing loss) (Acute) Squamous cell carcinoma of skin (Acute) Diabetes Prostate cancer (Chronic 12/18/15) HLD (hyperlipidemia) HTN (hypertension) Anemia hx 2019-used to get iron infusions Vitamin B12 deficiency (Acute) Tubular adenoma of colon (Acute) hx Polyneuropathy (Acute) Iron deficiency (Acute) Hemisensory deficit (Acute) Erectile dysfunction (Acute) Episodic lightheadedness (Acute) "only happens when driving on highways, no other time" BPH (benign prostatic hyperplasia) (Acute) GERD (gastroesophageal reflux disease) (Acute) Medical History Left buttock abscess I&D in office 11/04/23>reason for current anx History of COVID-19 10/2021>light cold symptoms>no current symptoms History of prostate cancer Hx of squamous cell carcinoma Diabetes mellitus, type 2 Cancer SKIN [id number] PROSTATE CANCER (RADIATON SEEDS AND RADIATION THERAPY) Surgical History Hx of right cataract extraction Hx of prostate biopsy under anesthesia for the bx and radiation seed implants History of local excision of skin lesion S/P vasectomy History of colonoscopy History of tooth extraction Family History Father Myocardial infarction Borderline diabetes mellitus COPD (chronic obstructive pulmonary disease) Mother Breast cancer Parkinsons disease Brother Coronary heart disease Hx of CABG Hypertension Sister Thyroid cancer Osteoarthritis Aunt Diabetes Uncle Heart disease Other No family history of adverse response to anesthesia Prostate cancer Stroke Denies family history of Colorectal cancer Social History Smoking Status: Never smoker Second Hand Exposure: Yes (hx as child); Do You Dip or Chew Tobacco: No; Hx Alcohol Use: No Hx Substance Use: No Preferred Language: Urdu Communication Ability: Effective Hearing Ability: Normal Radio Division Officer Required: No Beliefs That Will Affect Care: None marital status: / Current Living Situation: Alone current occupational status: retired current occupation: Retired Oct 2023 from parttime job. How many Children do You have: 3 Feels Safe at Home: Yes Safety Concerns: Feels Safe At This Time Childhood Exposure to Second-Hand Smoke: Yes Diet: diabetic and regular caffeine: Yes during the past year weight has: remained stable Dental Care, Regularly: Yes Physical Activity Frequency: 1-2 Times per Week Seatbelt Use: always Sunscreen Use: Yes Assistive Devices: None Review of Systems All systems reviewed & are unremarkable except as noted in HPI & below. Physical Exam GENERAL: AA&Ox3, NAD. Pleasant, affect is calm. Lying in bed and appears comfortable. RESPIRATORY: Normal respiratory effort with no signs of distress. CHEST/AXILLA: Chest movement symmetrical. No deformities noted. CARDIOVASCULAR: No edema noted. SKIN: [place], warm and dry. MS/EXTREMITY: Posterior short leg splint and Cecil wrap intact to left lower extremity. + Wiggles toes. NVI distally. Capillary refill <2 seconds. Upper calf soft/NT. DP pulse intact. Results & Data Results & Data Laboratory Results . Laboratory Results - last 24 hr 02/03/25 02/03/25 02/04/25 16:15 21:44 08:08 WBC 9.96 RBC 3.54 L Hgb 11.3 L Hct 33.3 L MCV 94.1 MCH 31.9 MCHC 33.9 RDW Std Deviation 44.2 RDW Coeff of Gino 12.8 Plt Count 221 MPV 10.5 Immature Gran % (Auto) 0.6 Neut % (Auto) 77.3 Lymph % (Auto) 9.2 [place] % (Auto) 8.5 Eos % (Auto) 3.9 Baso % (Auto) 0.5 Neut # (Auto) 7.69 H Lymph # (Auto) 0.92 L [place] # (Auto) 0.85 H Eos # (Auto) 0.39 Baso # (Auto) 0.05 Immature Gran # (Auto) 0.06 Sodium 137 Potassium 4.1 Chloride 104 Carbon Dioxide 21 Anion Gap 12 H BUN 35 H Creatinine 1.25 Est Cr Clr Drug Dosing 52.6 eGFR 56.78 BUN/Creatinine Ratio 28.0 H Glucose 263 H POC Glucose 181 H 147 H Calcium 9.5 Total Bilirubin 0.2 AST 18 ALT 16 Alkaline Phosphatase 66 Total Protein 6.6 Albumin 3.9 Globulin 2.7 Albumin/Globulin Ratio 1.4 Diagnostic Findings . Ankle X-Ray 02/03/25 16:13 INDICATION: Pain and injury. TECHNIQUE: 3 views of the left ankle. COMPARISON: No relevant priors. FINDINGS: Displaced, oblique fracture of the distal fibula. Remaining osseous structures intact. No dislocation. Prominent calcifications adjacent to the medial malleolus. Small plantar calcaneal enthesophyte. Soft tissue swelling. IMPRESSION: Displaced, oblique fracture of the distal fibula. Electronically signed by Julio Cesar Nicole 02-03-2025 4:32 PM Tibia/Fibula X-Ray 02/03/25 16:25 Clinical History: Fracture 3 views of the left lower leg are submitted for review. Findings: There is an acute oblique fracture of the distal fibular shaft and metaphysis with approximately one half shaft width displacement. There are bone fragments inferior to the medial malleolus that may be due to old injury. No subluxation or dislocation is seen. There is mild joint space narrowing in the medial compartment of the left knee. There are small patellar osteophytes also. There is a plantar calcaneal spur. No other osseous abnormality is identified. There are no radiopaque foreign bodies. Vascular calcifications are present Impression: 1. Acute fracture of the distal left fibula 2. Fragmentation of the medial malleolus that may be due to old injury 3. Mild left knee osteoarthritis 4. Calcaneal spur Electronically signed by John Ramirez 02-03-2025 4:55 PM Z PG Care Time/CCT Total # of Minutes Spent Total Time Spent with Patient: Total time spent is greater than 50% in coordination of care (as documented) at patient's floor/unit and/or counseling patient: [place] [address] IN/OBS CONSULT LVL 5,80M Patient Type New Medical Decision Making Moderate Complexity Diagnoses Closed fracture of left distal fibula S82.832A Additional Codes Fx Ankle - Distal fibula/lateral malleolus: Distal fibula/lateral malleolus ([id number])
[2025-02-04] MEDS ORDERED: ROPIVACAINE 0.5% 5 MG/ML 30 ML VIAL ONE (12:15)
--- NOTE | 2025-02-04 13:06 | Podiatry Consultation ---
Date of Consultation February 04, 2025 Assessment & Plan (1) Closed fracture of left distal fibula: (2) Fall down stairs: (3) Closed fracture dislocation of left ankle: Plan Plan for ORIF left distal fibular fracture: X-rays reviewed with oblique acute fracture of the distal aspect of the left fibula. Agree that bony ossicles noted surrounding the medial malleolus are likely secondary to old injury. Widening of the ankle mortise noted with possible syndesmotic disruption versus chronic changes. Will have tight rope in OR room for use as needed following reduction of the fibula. Discussed risk and benefits of the procedure at length with patient including but not limited to infection, need for further surgery, slow wound healing, pain, posttraumatic arthritis. Written informed consent reviewed with patient signed and witnessed. Patient n.p.o. since midnight. Emergency room documentation and consultations reviewed. Patient will do well to remain in the hospital following ORIF and benefit [facility]. He currently lives alone in his home with history of multiple falls in the past year. Will need to be nonweightbearing to the left lower extremity following ORIF. History of Present Illness Reason for Consultation: Closed fracture left distal fibula Attending Physician: Dev De La Paz MD, PhD History of Present Illness Patient seen resting comfortably in hospital bed with left ankle splint in place. Denies pain at present to the left ankle at present. Reports fall from stairs in home with twisting of the left ankle around 2 PM yesterday. Denies injury to the head or other body part and outside of the left ankle. He contacted EMS and was brought to the emergency department at [facility]. Initial evaluation in the emergency department with obvious left ankle fracture/dislocation. No open wound identified. Ankle was reduced in the emergency department and placed in a posterior and sugar-tong Ortho-Glass splint. Postreduction images in the emergency department with adequate reduction of the ankle joint, widening of the mortise and oblique acute distal fibular fracture noted. Patient currently lives at home alone. Close family members a daughter who lives in [place]. He is a community ambulator and does not use assistive device however he reports 5 memorable falls both in and out of the home in the last year. Would like to move forward with ORIF of the left ankle. Allergies Allergy/AdvReac Type Severity Reaction Status Date / Time No Known Drug Allergies Allergy Verified 11/18/24 08:21 Home Medications Medication Instructions Recorded Confirmed Type alfuzosin 10 mg tablet,extended 10 mg PO QAM 05/12/19 02/03/25 History release 24 hr aspirin 81 mg tablet,delayed 81 mg PO HS 05/12/19 02/03/25 History release cyanocobalamin (vitamin B-12) 100 mcg subcut Q30D 05/12/19 02/03/25 History 1,000 mcg/mL injection kit desonide 0.05 % topical cream 1 appln topical BID PRN 05/26/19 02/03/25 History DIRECTED #1 g blood-glucose meter (Accu-Chek #1 ea 08/20/19 02/03/25 Rx Guide Glucose Meter) geriatric gwbufxjw-xrhm-tjoq 1 tab PO QAM 10/06/19 02/03/25 History docusate sodium 100 mg capsule 200 mg PO HS 10/27/19 02/03/25 History betamethasone dipropionate 0.05 % 1 applic topical DAILY PRN . 10/11/20 02/03/25 History topical cream calcium citrate 200 mg PO BID 10/17/23 02/03/25 History lancets (Accu-Chek Fastclix Lancet #100 ea 11/13/23 02/03/25 Rx Drum) amlodipine 10 mg tablet 10 mg PO QPM #100 tabs 02/16/24 02/03/25 Rx blood sugar diagnostic (Accu-Chek #50 ea 04/14/24 02/03/25 Rx Guide test strips) spironolactone 25 1 tab PO QPM #90 tabs 06/21/24 02/03/25 Rx mg-hydrochlorothiazide 25 mg tablet glimepiride 1 mg tablet 1 mg PO QPM #90 tabs 08/12/24 02/03/25 Rx famotidine 20 mg tablet 20 mg PO BID #180 tabs 08/17/24 02/03/25 Rx metformin 500 mg tablet,extended 500 mg PO BID #180 tabs 09/09/24 02/03/25 Rx release 24 hr leuprolide [Lupron Depot] 1 dose IM .30 days 11/18/24 02/03/25 History losartan 50 mg tablet 50 mg PO BID #180 tabs 11/18/24 02/03/25 Rx atorvastatin 10 mg tablet 10 mg PO HS 02/03/25 02/03/25 History econazole nitrate 1 % topical cream 1 applic topical UD PRN FEET 02/03/25 02/03/25 History Patient History Medical History Left buttock abscess I&D in office 11/04/23>reason for current anx History of COVID-19 10/2021>light cold symptoms>no current symptoms History of prostate cancer Hx of squamous cell carcinoma Diabetes mellitus, type 2 Cancer SKIN [id number] PROSTATE CANCER (RADIATON SEEDS AND RADIATION THERAPY) Surgical History Hx of right cataract extraction Hx of prostate biopsy under anesthesia for the bx and radiation seed implants History of local excision of skin lesion S/P vasectomy History of colonoscopy History of tooth extraction Family History Father Myocardial infarction Borderline diabetes mellitus COPD (chronic obstructive pulmonary disease) Mother Breast cancer Parkinsons disease Brother Coronary heart disease Hx of CABG Hypertension Sister Thyroid cancer Osteoarthritis Aunt Diabetes Uncle Heart disease Other No family history of adverse response to anesthesia Prostate cancer Stroke Denies family history of Colorectal cancer Social History Smoking Status: Never smoker Second Hand Exposure: Yes (hx as child); Do You Dip or Chew Tobacco: No; Hx Alcohol Use: No Hx Substance Use: No Preferred Language: Polish Communication Ability: Effective Hearing Ability: Normal Raw Hide Trimmer Required: No Beliefs That Will Affect Care: None marital status: / Current Living Situation: Alone current occupational status: retired current occupation: Retired Oct 2023 from parttime job. How many Children do You have: 3 Feels Safe at Home: Yes Safety Concerns: Feels Safe At This Time Childhood Exposure to Second-Hand Smoke: Yes Diet: diabetic and regular caffeine: Yes during the past year weight has: remained stable Dental Care, Regularly: Yes Physical Activity Frequency: 1-2 Times per Week Seatbelt Use: always Sunscreen Use: Yes Assistive Devices: None Review of Systems Review of Systems: Denies nausea vomiting fever chills. Denies shortness of breath or chest pain. Denies injury to head with fall. Reports reports chronic numbness and tingling the left lower extremity. Systems reviewed with patient and negative unless otherwise stated in HPI. Physical Exam Physical Exam: Const: Appears well developed and well nourished. No signs of acute distress present. CV: Extremities: No cyanosis or edema. Capillary refill time is less than 2 seconds all digits of the bilateral foot. Posterior tibial and dorsalis pedis pulses are palpable bilateral. Lymph: No palpable or visible regional lymphadenopathy. Skin: No scars, rashes, lesions or ecchymosis. Neuro: Sensation intact to light touch in all areas of the foot and ankle. Psych: Mood/Affect: Mood is normal. Affect is normal. Cognition: Orientation is intact to person, place and time. Focused lower extremity musculoskeletal exam: Leg: No pain with compression of the calf muscle. Ankles: Splint is taken down and the lateral ankle was evaluated with no open wound, fracture blister or significant edema noted. Slight palpable step-off noted at the distal lateral fibula. Feet: Normal to inspection and palpation. No obvious instability. Motor strength is intact. Range of motion pain-free and unlimited. Results & Data Vital Signs (Past 12 Hours) Vital Signs Temp Pulse Resp BP Pulse Ox O2 Del Method 02/04/25 08:25 78 18 143/57 H 98 Room Air 02/04/25 07:18 36.4 C L 81 16 145/66 H 97 Room Air Laboratory Results Hemoglobin 11.3 Hematocrit 33.3 Last A1c 11/18/2024 6.8 Diagnostic Findings Ankle X-Ray 02/03/25 16:13 INDICATION: Pain and injury. TECHNIQUE: 3 views of the left ankle. COMPARISON: No relevant priors. FINDINGS: Displaced, oblique fracture of the distal fibula. Remaining osseous structures intact. No dislocation. Prominent calcifications adjacent to the medial malleolus. Small plantar calcaneal enthesophyte. Soft tissue swelling. IMPRESSION: Displaced, oblique fracture of the distal fibula. Electronically signed by Julio Cesar Nicole 02-03-2025 4:32 PM Tibia/Fibula X-Ray 02/03/25 16:25 Clinical History: Fracture 3 views of the left lower leg are submitted for review. Findings: There is an acute oblique fracture of the distal fibular shaft and metaphysis with approximately one half shaft width displacement. There are bone fragments inferior to the medial malleolus that may be due to old injury. No subluxation or dislocation is seen. There is mild joint space narrowing in the medial compartment of the left knee. There are small patellar osteophytes also. There is a plantar calcaneal spur. No other osseous abnormality is identified. There are no radiopaque foreign bodies. Vascular calcifications are present Impression: 1. Acute fracture of the distal left fibula 2. Fragmentation of the medial malleolus that may be due to old injury 3. Mild left knee osteoarthritis 4. Calcaneal spur Electronically signed by John Ramirez 02-03-2025 4:55 PM PG Care Time/CCT Total # of Minutes Spent Total Time Spent with Patient: Total time spent is greater than 50% in coordination of care (as documented) at patient's floor/unit and/or counseling patient: [place] [address] INT INP/OBS CARE 3/75MIN Patient Type New History Comprehensive Exam Comprehensive Medical Decision Making High Complexity Diagnoses Closed fracture of left distal fibula S82.832A Fall down stairs W10.8XXA Closed fracture dislocation of left ankle S82.892A
--- NOTE | 2025-02-04 14:36 | Operative Report ---
PG Post Operative Report Pre & Post Diagnosis Operation Date: 02/04/25 11:30 <No data on this case meets the specified criteria> I identified the patient and participated in the time-out.: Yes Procedure Operation Date: 02/04/25 11:30 <No data on this case meets the specified criteria> Surgeon Be Hay, ALFREDO Quantitative Research Analyst none Estimated Blood Loss 10 Findings Consistent with Post-Op Diagnosis Specimens none Complications none Indications Unstable fracture of the left distal fibula Description of Procedure Patient brought to the operating room placed on the operating table supine position. Received regional block the left lower extremity general anesthesia by the anesthesia team. 2 g IV Ancef prior to incision. Timeout is held confirming correct patient, side, site, procedure with all necessary parties confirming. Left lower extremity scrubbed prepped and draped in usual aseptic fashion to the level of the knee. Attention was directed to the lateral aspect of the patient's left leg soft tissue overlying the fibula. Fluoroscopy was utilized to identify the level of fracture and confirm incision placement. Further attempt at closed reduction to reduce medial gutter widening to determine if there is any interposed soft tissue immediately. Adequate reduction of the medial ankle mortise is noted. Curvilinear incision is created centrally over the distal fibula. Incision is carried deep through subcutaneous tissue with blunt and sharp dissection taking care to avoid all vital neural and vascular structures and all bleeders are cauterized as necessary. Fracture line identified and hematoma evacuated with curette [place] elevator and lavage. Periosteal structures are freed proximally and distally, fracture line with care made to remove any interposing soft tissue. Fracture was exaggerated, reduced and reduction is held in place with a lobster claw. Correction of the deformity is visualized under fluoroscopy noted reduction of the fracture fragment and adequate length of the fibula with a congruous ankle mortise. I Arthrex fibular plate selected and placed over the lateral aspect of the fibula. Nonlocking screw was used proximal and distal to the fracture line to achieve close contact with the lateral wall of the fibula. Holes within the distal fibular plate are drilled, measured and filled with Arthrex locking screws. Nonlocking screw placed in the proximal to the plate of the proximal lateral fibula which was difficult to the contour of the fibula proximally. Locking screws placed in the remainder of the holes of the fibular plate. Correction and plate placement are again visualized under fluoroscopy. There are no screws that appear to be entering the ankle joint of distal fibular plate. This time the ankle mortise is evaluated and noted to be congruent with no notable widening. Lateral hook test is performed in addition to dorsiflexion external rotation of the foot to evaluate the integrity of the syndesmosis which appears to be intact. Surgical wound is flushed copious amounts normal sterile saline. Vancomycin powder placed within the wound bed. Deep structures are closed with a 3-0 Vicryl over the fibular plate. Subcutaneous tissue reapproximated with 3-0 Vicryl. Wound edges reapproximated and closed with skin diana. Ankle was cleansed with normal sterile saline dried and dressed with Betadine soaked Adaptic, 4 x 4 fluff gauze, ABD pad, Guero and an Cecil bandage. 6 rolls of cast padding and placed over the foot heel ankle followed by posterior splint and sugar-tong splint. tourniquet was released of the total tourniquet time of 90 minutes and a prompt hyperemic response was noted all digits of the left foot. Patient tolerated the procedure and anesthesia well. He is transferred to recovery room with vital signs stable and vascular status intact to all digits of the left foot. Following a brief period of postoperative monitoring recovery room patient is transferred back to his bed on the floor for continued medical management, DVT prophylaxis and pain control. I attest to the content of the Intraoperative Record and any orders documented therein. Any exceptions are noted below.
--- NOTE | 2025-02-04 15:01 | Anesthesiology Consultation ---
Date of Service February 04, 2025 Assessment & Plan (1) Encounter for pre-operative examination: Chart Review Chart Review: Acceptable Risk for Surgery and Patient NOT seen in Pre Admission Testing Consults Requested none History Surgery Operation Date: 02/04/25 11:30 Proposed Procedures p Left Ankle Open Reduction Internal Fixation - Be Juliane Hay DPM Height/Weight Height: 5 ft 9 in Weight: 105.2 kg Allergies Allergy/AdvReac Type Severity Reaction Status Date / Time No Known Drug Allergies Allergy Verified 11/18/24 08:21 Medications Home Medications Medication Instructions Recorded Confirmed Last Taken alfuzosin 10 mg tablet,extended 10 mg PO QAM 05/12/19 02/03/25 02/03/25 release 24 hr aspirin 81 mg tablet,delayed 81 mg PO HS 05/12/19 02/03/25 02/02/25 release cyanocobalamin (vitamin B-12) 100 mcg subcut Q30D 05/12/19 02/03/25 01/25/22 1,000 mcg/mL injection kit desonide 0.05 % topical cream 1 appln topical BID PRN 05/26/19 02/03/25 12/08/23 05:20 DIRECTED #1 g blood-glucose meter (Accu-Chek #1 ea 08/20/19 02/03/25 Unknown Guide Glucose Meter) geriatric [id number]-tycn-jimq 1 tab PO QAM 10/06/19 02/03/25 02/03/25 docusate sodium 100 mg capsule 200 mg PO HS 10/27/19 02/03/25 02/02/25 betamethasone dipropionate 0.05 % 1 applic topical DAILY PRN . 10/11/20 02/03/25 02/09/22 topical cream calcium citrate 200 mg PO BID 10/17/23 02/03/25 02/03/25 AM lancets (Accu-Chek Fastclix Lancet #100 ea 11/13/23 02/03/25 Unknown Drum) amlodipine 10 mg tablet 10 mg PO QPM #100 tabs 02/16/24 02/03/25 02/02/25 blood sugar diagnostic (Accu-Chek #50 ea 04/14/24 02/03/25 Unknown Guide test strips) spironolactone 25 1 tab PO QPM #90 tabs 07/02/03/25 02/02/25 mg-hydrochlorothiazide 25 mg tablet glimepiride 1 mg tablet 1 mg PO QPM #90 tabs 08/12/24 02/03/25 02/02/25 famotidine 20 mg tablet 20 mg PO BID #180 tabs 08/17/24 02/03/25 02/03/25 AM metformin 500 mg tablet,extended 500 mg PO BID #180 tabs 09/09/24 02/03/25 02/03/25 release 24 hr AM leuprolide [Lupron Depot] 1 dose IM .30 days 11/18/24 02/03/25 Unknown losartan 50 mg tablet 50 mg PO BID #180 tabs 11/18/24 02/03/25 02/03/25 AM atorvastatin 10 mg tablet 10 mg PO HS 02/03/25 02/03/25 02/02/25 econazole nitrate 1 % topical cream 1 applic topical UD PRN FEET 02/03/25 02/03/25 Unknown Active Medications Generic Name Dose Route Start Last Admin Trade Name Freq PRN Reason Stop Dose Admin Acetaminophen 650 mg 02/03/25 18:00 02/04/25 12:57 Acetaminophen 325 Mg Tab PO 03/05/25 17:59 650 mg Q6H FRANCISCA Administration Amlodipine Besylate 10 mg 02/03/25 21:00 02/03/25 22:01 Amlodipine Besylate 5 Mg Tab PO 03/05/25 20:59 10 mg QPM FRANCISCA Administration Aspirin 81 mg 02/03/25 21:00 02/03/25 22:01 Aspirin 81 Mg Ectab PO 03/05/25 20:59 81 mg HS FRANCISCA Administration Atorvastatin Calcium 10 mg 02/03/25 21:00 02/03/25 22:01 Atorvastatin 10 Mg Tab PO 03/05/25 20:59 10 mg HS FRANCISCA Administration Famotidine 20 mg 02/03/25 21:00 02/04/25 08:35 Famotidine 20 Mg Tab PO 03/05/25 20:59 20 mg BID FRANCISCA Administration Insulin Aspart 0 units 02/03/25 21:00 02/04/25 12:58 Insulin Aspart Per Unit Charge SC 03/05/25 20:59 Not Given ACHS FRANCISCA Losartan Potassium 50 mg 02/03/25 21:00 02/04/25 08:31 Losartan Potassium 50 Mg Tab PO 03/05/25 20:59 50 mg BID FRANCISCA Administration Polyethylene Glycol 17 gm 02/04/25 09:00 02/04/25 08:32 Polyethylene (Miralax) 17 Gm Pack PO 03/06/25 08:59 Not Given DAILY FRANCISCA Tamsulosin HCl 0.4 mg 02/04/25 09:00 02/04/25 08:31 Tamsulosin Hcl 0.4 Mg Cap PO 03/06/25 08:59 0.4 mg QAM FRANCISCA Administration Past Medical History Medical History Left buttock abscess I&D in office 11/04/23>reason for current anx History of COVID-19 10/2021>light cold symptoms>no current symptoms History of prostate cancer Hx of squamous cell carcinoma Diabetes mellitus, type 2 Cancer SKIN LKMZOW-[id number]-[id number] PROSTATE CANCER (RADIATON SEEDS AND RADIATION THERAPY) Past Family History Family History Father Myocardial infarction Borderline diabetes mellitus COPD (chronic obstructive pulmonary disease) Mother Breast cancer Parkinsons disease Brother Coronary heart disease Hx of CABG Hypertension Sister Thyroid cancer Osteoarthritis Aunt Diabetes Uncle Heart disease Other No family history of adverse response to anesthesia Prostate cancer Stroke Denies family history of Colorectal cancer Past Surgical History Surgical History Hx of right cataract extraction Hx of prostate biopsy under anesthesia for the bx and radiation seed implants History of local excision of skin lesion S/P vasectomy History of colonoscopy History of tooth extraction Social History Smoking Status: Never smoker Do You Dip or Chew Tobacco: No Hx Alcohol Use: No Hx Substance Use: No substance use type: does not use Physical Exam Vital Signs Last Vital Signs Temp 97.5 F L 02/04/25 07:18 Pulse 78 02/04/25 08:25 Resp 18 02/04/25 08:25 BP 143/57 H 02/04/25 08:25 Pulse Ox 98 02/04/25 08:25 O2 Del Method Room Air 02/04/25 08:25 Testing Laboratory Results 02/03/25 16:15 02/03/25 16:15 02/04/25 02/04/25 11:37 08:08 POC Glucose 159 H 147 H Electrocardiogram Date: 02/03/25 Findings: + NSR @ (1st degree AV block)
[2025-02-04] MEDS ORDERED: ONDANSETRON INJ 2 MG/ML 2 ML VIAL ONE (15:21)
[2025-02-04] MEDS ORDERED: LIDOCAINE 2% 2 ML VIAL/AMP(20MG/ML) INFIL ONE (15:21)
[2025-02-04] MEDS ORDERED: DEXAMETHASONE SOD INJ 4 MG/ML VIAL ONE (15:21)
[2025-02-04] MEDS ORDERED: PROPOFOL IV EMULSION 10 MG/ML 20 ML VIAL IV ONE (15:21)
[2025-02-04] MEDS ORDERED: PHENYLEPHRINE HCL 10 MG/ML VIAL ONE (15:26)
[2025-02-04] MEDS ORDERED: fentaNYL citrate PF 100 MCG/2 ML VIAL ONE (15:28)
[2025-02-04] MEDS ORDERED: fentaNYL citrate PF 100 MCG/2 ML VIAL IV PRN (15:33)
[2025-02-04] MEDS ORDERED: ATROPINE SULFATE 0.1 MG/ML 10ML SYR IV PRN (15:33)
[2025-02-04] MEDS ORDERED: ONDANSETRON INJ 2 MG/ML 2 ML VIAL IV PRN (15:33)
[2025-02-04] MEDS ORDERED: ePHEDrine sulfate 50 MG/ML AMP IV PRN (15:33)
[2025-02-04] MEDS: ceFAZolin 2000MG 2,000 MG/15 ML SYR IV ONE (15:58)
[2025-02-04] MEDS: BUPIVACAINE/EPINEPHRINE 0.5% MPF 1:200,000 30 ML VIAL ONE (16:45)
[2025-02-04] MEDS: VANCOMYCIN HCL 1000MG/20ML VIAL ONE (17:53)
--- NOTE | 2025-02-04 18:11 | Post Operative Brief Note ---
PG Immediate Post Op with CF Date of Surgery February 04, 2025 Pre & Post Diagnosis Operation Date: 02/04/25 11:30 Pre-Op Diagnosis: (1) Closed fracture of left distal fibula (2) Fall down stairs (3) Closed fracture dislocation of left ankle Post-Op Diagnosis: (1) Closed fracture of left distal fibula (2) Fall down stairs (3) Closed fracture dislocation of left ankle I identified the patient and participated in the time-out.: Yes Procedure Operation Date: 02/04/25 11:30 Actual Procedures p Left Ankle Open Reduction Internal Fixation(Left) - Be Hay DPM Surgeon Be Hay DPM Primary Clinician none Estimated Blood Loss 10 Findings Consistent with Post-Op Diagnosis Specimens Specimen Description: No specimen per surgeon Complications none
--- NOTE | 2025-02-04 20:17 | Hospitalist Progress Note ---
Date of Service February 04, 2025 Assessment & Plan (1) Ankle fracture, bimalleolar, closed: (2) Diabetes: (3) HLD (hyperlipidemia): (4) HTN (hypertension): (5) Anemia: Plan 84 years old male with PMH of DNR/DNI @ home alone, obesity with BMI 34.2 (height 175.3 cm; weight 105.2 kg), chronic normocytic, normochromic anemia with baseline Hb range, 11.3 - 12.9 g/dL (01/12/2018 - 12/21/2024), prostate CA (diagnosed in 2018), s/p EBRT and leuprolide, now restarted leuprolide 7.5mg IM monthly given recent rise in PSA, BPH on alfuzosin 10mg PO qam, GERD on famotidine 20mg PO bid, hyperlipidemia on atorvastatin 10mg PO qhs, HTN on amlodipine 10mg PO qpm, spironolactone 25mg - HCTZ 25mg PO daily, and losartan 50mg PO bid, CKD stage III with baseline creatinine range, 1.13 - 1.31 (06/16/2023 - 12/21/2024), non-insulin dependent DM2 with HbA1c 6.8% (11/18/2024, 9:05am) on glimepiride 1mg PO qam and metformin 500mg PO bid, and ambulatory dysfunction s/p mechanical fall down 3-4 upper steps in his home ~5 years ago, wearing socks, followed by slipping on the smooth step and landing on his buttock without fracture and without antecedent/coincident syncope, who sustained a mechanical fall down 3-4 lower steps in his home on 02/03/2025, wearing socks, followed by slipping on the smooth step and twisting his left lower leg/ankle/foot, resulting in an acute distal left fibula fracture, and without antecedent/coincident syncope. Patient was subsequently admitted to the inpatient hospitalist service @ [facility] on 02/03/2025 with the following diagnosis: 1. Acute fracture of the distal left fibula (as noted on 02/03/2025, 4:25pm left tibia/fibula x-ray). The following medical issues are being addressed: 1. Podiatry. Acute fracture of the distal left fibula (as noted on 02/03/2025, 4:25pm left tibia/fibula x-ray). s/p ORIF of acute fracture of the distal left fibula (02/04/2025, 2:28pm, [facility] Podiatric Surgeon Dr. Be Hay)." Await PT/OT Service evaluations in the 02/05/2025 am. 2. Fluids, electrolytes, nutrition. Obesity with BMI 34.2 (height 175.3 cm; weight 105.2 kg). Patient needs to lose at least 28.8 kg in order to attain a BMI 24.9, at which level, the patient would no longer be deemed obese or overweight. Patient reports that he is too old at 84 years of age to modify his diet, exercise, and/or lifestyle in order to lose any weight over any time period. I concur. 3. Hematology. Chronic normocytic, normochromic anemia with baseline Hb range, 11.3 - 12.9 g/dL (01/12/2018 - 12/21/2024). cf., admission Hb 11.3 g/dL, MCV 94.1, MCHC 33.9 (02/03/2025, 4:15pm). Patient reports no mucosal bleeding and remains hemodynamically stable. Etiology of chronic normocytic, normochromic anemia is most probably due to anemia of chronic disease(s), including prostate CA and/or CKD stage III. 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 Hence, I have opted to hold off further Hb testing in order to preserve and conserve patient's citlaly blood supply while patient remains in [facility]. 4. Oncology. Prostate CA (diagnosed in 2019), s/p EBRT and leuprolide, now restarted leuprolide 7.5mg IM monthly given recent rise in PSA. Patient will continue with leuprolide 7.5mg IM monthly at his home as this medication is not available on hospital formulary. 5. Urology. BPH. Asymptomatic on alfuzosin 10mg PO qam at home. Hold off alfuzosin 10mg PO qam given the potential for this alpha 1 adrenergic antagonist to cause hypotension while patient remains in [facility]. 6. GI. GERD. Asymptomatic on famotidine 20mg PO bid at home. Continue famotidine 20mg PO bid while patient remains in [facility]. 7. CV. Hyperlipidemia. Asymptomatic on atorvastatin 10mg PO qhs at home. Con tinue atorvastatin 20mg PO qhs while patient remains in [facility]. 8. CV. HTN. Well-controlled with BP 154/65 (02/04/2025, 7:30pm) on amlodipine 10mg PO qpm, spironolactone 25mg - HCTZ 25mg PO daily, and losartan 50mg PO bid at home. Continue amlodipine 10mg PO qpm and losartan 50mg PO bid while patient remains in [facility]. Hold off patient's home-scheduled spironolactone 25mg - HCTZ 25mg PO daily given potential for this medication to cause hypotension while patient remains in [facility]. Continue 2 gram Na diet and BP checks q shift while patient remains in [facility]. 9. Renal. CKD stage III with baseline creatinine range, 1.13 - 1.31 (06/16/2023 - 12/21/2024). cf., admission creatinine 1.25 mg/dL, GFR 56.8 mL/min (02/03/2025, 4:15pm). The cornerstone of therapy of CKD is to treat the underlying causes of CKD, namely, HTN and DM. 10.Endocrinology. Non-insulin dependent DM2 with HbA1c 6.8% (11/18/2024, 9:05am). cf., admission glucose 263 mg/dL, anion gap 12, CO2 12 (02/03/2025, 4:15pm). cf., repeat glucose 181 mg/dL (02/03/2025, 9:44pm). cf., repeat glucose 147 mg/dL (02/04/2025, 8:08am). cf., repeat glucose 159 mg/dL (02/04/2025, 11:37am). cf., repeat glucose 142 mg/dL (02/04/2025, 3:39pm). cf., current glucose 167 mg/dL (02/04/2025, 6:20pm). Hold off patient's home-scheduled glimepiride 1mg PO qam and metformin 500mg PO bid given potential for glimepiride 1mg PO qam to induce hypoglycemia and given potential for metformin 500mg PO bid to cause nausea/vomiting. Instead, patient is being maintained on a carbohydrate consistent diet, aspart insulin sliding scale qac + qhs, and POC glucose qac + qhs. 11.Vascular. DVT prophylaxis. Hold off pharmacologic DVT prophylaxis with heparin 5000 units SQ q12 in the immediate post-operative period. Patient will start heparin 5000 units SQ q12 on 02/05/2025, 9:00am. O 12.Pain Management. Patient reports 0/10 pain on 02/04/2025. Continue tylenol 650mg PO q6 [id number]-[id number], tylenol 650mg PO q4 prn pain 1-3, headache, temp > 100.4 degrees Fahrenheit, morphine 2mg IV q4 prn pain 4-6, morphine 4mg IV q4 prn pain 7-10. 13.Disposition. Code status, DNR/DNI @ home alone. Condition of patient remains fair. I anticipate that this patient will remain in [facility] for the next 1-2 midnights in order to convalesce, followed by PT/OT Service evaluations in order to determine if patient can be discharged back to his home or to SNF for short-term rehab. Patient will then follow up with his PCP Dr. José Mixon within 7 days of hospital discharge; patient will follow up with his Podiatric Surgeon Dr. Be Hay within 14 days of hospital discharge. Of final note, I spoke with the patient at the bedside in [facility] Med-Surg floor bed #[id number] today, 02/04/2025, and the patient concurs with the assessment and plan as described above. Admission and Anticipated Discharge Date Admission Date: February 03, 2025 Subjective "I am ok. I had my left ankle fracture fixed earlier this afternoon (02/04/2025, 2:28pm, [facility] Podiatric Surgeon Dr. Be Hay)." Review of Systems Constitutional: Negative for antecedent/coincident fevers, chills, diaphoresis, cough, wheeze, sore throat, hemoptysis, chest pains, palpitations, pleurisy, nausea, vomiting, diarrhea, abdominal pain, pelvic pain, hematemesis, hematochezia, melena, hematuria, dysuria, frequency, urgency, headaches, dizziness, lightheadedness, visual changes, hearing changes, weakness, falls, syncope, trauma, travel history, sick contacts, or food/drug ingestions novel or new. All other review of systems are reported as negative by the patient on 02/04/2025. Physical Exam Constitutional: General: Comfortable, coherent, cooperative. Wide awake and alert. Not confused, lethargic, or obtunded. Patient speaks in complete, fluent, and articulate sentences without pause, interruption, cough, or wheeze. HEENT: Normocephalic, atraumatic. Pupils equally round and reactive to light. No nystagmus, gaze paresis, anisocoria, miosis, mydriasis, hyphema, scleral injection, conjunctivitis, or pterygium. No rhinorrhea or otorrhea. No pharyngeal discharge or erythema. Neck: Supple, non-tender, no stridor, bruit, goiter, hepatojugular reflux. Jugular venous pressure is estimated to be 8 cm above the sternal angle of Rakesh, which is estimated to be 5 cm above the level of the right atrium. Lymph: No anterior/posterior cervical, supraclavicular/infraclavicular, axillary, epitrochlear, or inguinal adenopathy. Chest: Symmetric rise and fall with respirations. Lungs: Clear to auscultation and percussion. No audible expiratory wheeze, egophony, pectoriloquy, increase in tactile fremitus, or flatness/dullness to percussion at the bases. Heart: RRR, S1 and S2 noted. No S3 or S4 summation gallop noted. No tripartite friction rub. Grade II/ early systolic murmur @ LLSB without radiation to the carotids, axilla, or back, and which remains invariant in regards to the respiratory cycle. Abdomen: Soft, non-tender, non-distended. No rebound, guarding, Mckee's sign, or organomegaly. Bowel sounds sounds auscultated in all 4 quadrants. Extremities: No clubbing, cyanosis. Left lower costello/ankle/foot swathed in bandages s/p ORIF of left distal fibula fracture (02/04/2025, 2:28pm). 2+ pedal pulses bilaterally. Skin: No delay in capillary refill time > 2 seconds. No decubitus ulcer, exanthem, or enanthem. Neurology: DTR+ and symmetric. No tremors, tics, or myoclonus. Urology: No aguilera catheter. No urethral discharge. Psychiatry: No suicidal ideation. No homicidal ideation. Results & Data Results & Data Vital Signs (Past 12 Hours) Vital Signs Temp Pulse Pulse Resp BP BP Pulse Ox 02/04/25 18:50 36.9 C 79 20 147/73 H 96 02/04/25 18:45 85 22 143/73 H 98 02/04/25 18:35 36.8 C 77 16 145/72 H 100 02/04/25 18:25 88 14 135/67 100 02/04/25 18:15 36.7 C 89 18 135/68 99 02/04/25 15:30 36.7 C 83 17 146/66 H 94 02/04/25 15:15 36.7 C 96 H 18 154/71 H 98 02/04/25 08:25 78 18 143/57 H 98 O2 Del Method O2 Flow Rate 02/04/25 18:50 Room Air 02/04/25 18:45 Room Air 02/04/25 18:35 Room Air 02/04/25 18:25 Room Air 02/04/25 18:15 Oxymask 5 02/04/25 15:30 Room Air 02/04/25 15:15 Room Air 02/04/25 08:25 Room Air Laboratory Results 02/04/25 02/04/25 02/04/25 18:20 15:39 11:37 POC Glucose 167 H 142 H 159 H 02/04/25 02/03/25 08:08 21:44 POC Glucose 147 H 181 H PG Care Time/CCT Total # of Minutes Spent Total Time Spent with Patient: Total time spent is greater than 50% in coordination of care (as documented) at patient's floor/unit and/or counseling patient: Coding Level of Care Code 09680 SUB INP/OBS CARE 2/35MIN Diagnoses Ankle fracture, bimalleolar, closed S82.843A Diabetes E11.9 Diabetes mellitus type: type 2 Diabetes mellitus halfway insulin use: without medical terminologist use Diabetes mellitus complication status: with kidney complications Diabetes mellitus complication detail: with chronic kidney disease Chronic kidney disease stage 3 subtype: stage 3a (GFR 45-59) HLD (hyperlipidemia) E78.5 HTN (hypertension) I10 Anemia D64.9 (2) Diabetes Diabetes mellitus type: type 2 Diabetes mellitus halfway insulin use: without halfway use Diabetes mellitus complication status: with kidney complications Diabetes mellitus complication detail: with chronic kidney disease Chronic kidney disease stage 3 subtype: stage 3a (GFR 45-59)
[2025-02-04] MEDS: MELATONIN 3 MG TAB PO PRN (21:04)
[2025-02-04] MEDS: ceFAZolin 2,000 MG/15 ML IV PUSH IV ONE (21:06)
--- NOTE | 2025-02-05 08:03 | Fluoroscopy Report ---
FL ankle LT min 3V RTN CLINICAL HISTORY: LT ANKLE ORIF COMPARISON STUDY: None FLUOROSCOPY TIME: 38 seconds FLUOROSCOPY IMAGES: 4 EXPOSURE DOSE: 0.9 mGy FINDINGS: Fluoroscopy was provided for internal fixation of the distal fibula. IMPRESSION: Intraoperative fluoroscopy. ACT 112: Negative or not required by law. Electronically signed by: Scottie Ramires M.D. 02/05/2025 8:00 AM
--- NOTE | 2025-02-05 12:20 | Podiatry Progress Note ---
Date of Service February 05, 2025 Assessment & Plan (1) Closed fracture of left distal fibula: (2) Closed fracture dislocation of left ankle: Plan 84-year-old male postop day 1 status post ORIF left ankle fracture/dislocation on 02/04/2025. Plan: 1. DVT prophylaxis w/ ASA 81 mg twice daily. 2. Awaiting PT/OT evaluation and recommendations. Non-WB on LLE. 3. Pain to the left lower extremity well-controlled continue current regimen. 4. Medical management as per the primary medicine service. 5. Continue rest, ice and elevation. Keep splint/dressing clean and dry. 6. Patient okay for discharge from podiatry standpoint following evaluation and recommendations from PT/OT. 7. Follow-up outpatient in podiatry office within 2-3 weeks. Will work on getting patient scheduled for 02/22/2025. Admission and Anticipated Discharge Date Admission Date: February 03, 2025 Subjective Patient seen resting comfortably in hospital bed eating lunch today. Postop day 1 status post left ankle ORIF. Posterior splint remains in place elevated on 1 pillow. Patient denies pain or irritation from the splint. Reports adequate pain control postoperatively. Has been remaining nonweightbearing to the left lower extremity. Awaiting evaluation by physical therapy for recommendations. Reports 8 hours of uninterrupted sleep last night. Review of Systems Review of Systems: Denies nausea vomiting fever chills. Denies pain in the left leg. Denies pain from the splint. Denies numbness tingling or burning in the left leg or foot. All systems reviewed and negative unless otherwise stated in HPI. Physical Exam Physical Exam: Left lower extremity in well-padded posterior splint. Capillary refill time 2 to 3 seconds in toes x 5 left foot. Patient is able to go through range of motion with toes without difficulty. Sensation remains intact to toes x 5 to the left foot. Results & Data Results & Data Vital Signs (Past 12 Hours) Vital Signs Temp Pulse Resp BP Pulse Ox O2 Del Method 02/05/25 11:29 36.9 C 85 18 137/58 L 97 Room Air 02/05/25 07:35 36.6 C 78 16 122/60 95 Room Air 02/05/25 02:00 36.6 C 73 18 123/65 96 Room Air Coding Level of Care Code 02087 Post Operative Follow-Up Diagnoses Other closed fracture of distal end of left fibula with routine healing, subsequent encounter S82.832D Encounter type: subsequent encounter Fracture morphology: other fracture Fracture healing: with routine healing Closed fracture dislocation of left ankle with routine healing, subsequent encounter S82.892D Encounter type: subsequent encounter Fracture healing: with routine healing (1) Closed fracture of left distal fibula Encounter type: subsequent encounter Fracture morphology: other fracture Fracture healing: with routine healing Qualified Code(s): S82.832D - Other fracture of upper and lower end of left fibula, subsequent encounter for closed fracture with routine healing (2) Closed fracture dislocation of left ankle Encounter type: subsequent encounter Fracture healing: with routine healing Qualified Code(s): S82.892D - Other fracture of left lower leg, subsequent encounter for closed fracture with routine healing
--- NOTE | 2025-02-05 16:14 | Hospitalist Progress Note ---
Date of Service February 05, 2025 Assessment & Plan (1) Ankle fracture, bimalleolar, closed: (2) Diabetes: (3) HLD (hyperlipidemia): (4) HTN (hypertension): (5) Anemia: Plan 84 years old male with PMH of DNR/DNI @ home alone, obesity with BMI 34.2 (height 175.3 cm; weight 105.2 kg), chronic normocytic, normochromic anemia with baseline Hb range, 11.3 - 12.9 g/dL (01/12/2018 - 12/21/2024), prostate CA (diagnosed in 12/18/[address] and bone scan revealing no evidence of concetta, bony, or visceral metastases), s/p external beam XRT (50.4 Geigy in 28 FX) to the prostate, seminal vesicles, and pelvic nodes with cone down (30.6 Geigy in 17 FX) on prostate and seminal vesicles, completing such external beam XRT on 05/09/2016, and leuprolide (first dose administered on 08/22/2021), now restarted leuprolide 7.5mg IM monthly given recent rise in PSA, BPH on alfuzosin 10mg PO qam, GERD on famotidine 20mg PO bid, hyperlipidemia on atorvastatin 10mg PO qhs, HTN on amlodipine 10mg PO qpm, spironolactone 25mg - HCTZ 25mg PO daily, and losartan 50mg PO bid, CKD stage III with baseline creatinine range, 1.13 - 1.31 (06/16/2023 - 12/21/2024), non-insulin dependent DM2 with HbA1c 6.8% (11/18/2024, 9:05am) on glimepiride 1mg PO qam and metformin 500mg PO bid, and ambulatory dysfunction s/p mechanical fall down 3-4 upper steps in his home ~5 years ago, wearing socks, followed by slipping on the smooth step and landing on his buttock without fracture and without antecedent/coincident syncope, who sustained a mechanical fall down 3-4 lower steps in his home on 02/03/2025, wearing socks, followed by slipping on the smooth step and twisting his left lower leg/ankle/foot, resulting in an acute distal left fibula fracture, and without antecedent/coincident syncope. Patient was subsequently admitted to the inpatient hospitalist service @ [facility] on 02/03/2025 with the following diagnosis: 1. Acute fracture of the distal left fibula (as noted on 02/03/2025, 4:25pm left tibia/fibula x-ray). The following medical issues are being addressed: 1. Podiatry. Acute fracture of the distal left fibula (as noted on 02/03/2025, 4:25pm left tibia/fibula x-ray). s/p ORIF of acute fracture of the distal left fibula (02/04/2025, 2:28pm, [facility] Podiatric Surgeon Dr. Be Hay)." Await PT/OT Service evaluations in the 02/05/2025 am. 2. Fluids, electrolytes, nutrition. Obesity with BMI 34.2 (height 175.3 cm; weight 105.2 kg). Patient needs to lose at least 28.8 kg in order to attain a BMI 24.9, at which level, the patient would no longer be deemed obese or overweight. Patient reports that he is too old at 84 years of age to modify his diet, exercise, and/or lifestyle in order to lose any weight over any time period. I concur. 3. Hematology. Chronic normocytic, normochromic anemia with baseline Hb range, 11.3 - 12.9 g/dL (01/12/2018 - 12/21/2024). cf., admission Hb 11.3 g/dL, MCV 94.1, MCHC 33.9 (02/03/2025, 4:15pm). Patient reports no mucosal bleeding and remains hemodynamically stable. Etiology of chronic normocytic, normochromic anemia is most probably due to anemia of chronic disease(s), including prostate CA and/or CKD stage III. 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 Hence, I have opted to hold off further Hb testing in order to preserve and conserve patient's citlaly blood supply while patient remains in [facility]. 4. Oncology. Prostate CA (diagnosed in 12/18/[address] and bone scan revealing no evidence of concetta, bony, or visceral metastases), s/p external beam XRT (50.4 Geigy in 28 FX) to the prostate, seminal vesicles, and pelvic nodes with cone down (30.6 Geigy in 17 FX) on prostate and seminal vesicles, completing such external beam XRT on 05/09/2016, and leuprolide (first dose administered on 08/22/2021), now restarted leuprolide 7.5mg IM monthly given recent rise in PSA. Patient will continue with leuprolide 7.5mg IM monthly at his home as this medication is not available on hospital formulary. 5. Urology. BPH. Asymptomatic on alfuzosin 10mg PO qam at home. Hold off alfuzosin 10mg PO qam given the potential for this alpha 1 adrenergic antagonist to cause hypotension while patient remains in [facility]. 6. GI. GERD. Asymptomatic on famotidine 20mg PO bid at home. Continue famotidine 20mg PO bid while patient remains in [facility]. 7. CV. Hyperlipidemia. Asymptomatic on atorvastatin 10mg PO qhs at home. Continue atorvastatin 20mg PO qhs while patient remains in [facility]. 8. CV. HTN. Well-controlled with BP 154/65 (02/04/2025, 7:30pm) and BP 117/53 (02/05/2025, 3:48pm) on amlodipine 10mg PO qpm, spironolactone 25mg - HCTZ 25mg PO daily, and losartan 50mg PO bid at home. Continue amlodipine 10mg PO qpm and losartan 50mg PO bid while patient remains in [facility]. Hold off patient's home- scheduled spironolactone 25mg - HCTZ 25mg PO daily given potential for this medication to cause hypotension while patient remains in [facility]. Continue 2 gram Na diet and BP checks q shift while patient remains in [facility]. 9. Renal. CKD stage III with baseline creatinine range, 1.13 - 1.31 ( - 12/21/2024). cf., admission creatinine 1.25 mg/dL, GFR 56.8 mL/min (02/03/2025, 4:15pm). The cornerstone of therapy of CKD is to treat the underlying causes of CKD, namely, HTN and DM. 10.Endocrinology. Non-insulin dependent DM2 with HbA1c 6.8% (11/18/2024, 9:05am). cf., admission glucose 263 mg/dL, anion gap 12, CO2 12 (02/03/2025, 4:15pm). cf., repeat glucose 181 mg/dL (02/03/2025, 9:44pm). cf., repeat glucose 147 mg/dL (02/04/2025, 8:08am). cf., repeat glucose 159 mg/dL (02/04/2025, 11:37am). cf., repeat glucose 142 mg/dL (02/04/2025, 3:39pm). cf., repeat glucose 167 mg/dL (02/04/2025, 6:20pm) cf., current glucose 132 mg/dL (02/05/2025, 11:31am). Hold off patient's home-scheduled glimepiride 1mg PO qam and metformin 500mg PO bid given potential for glimepiride 1mg PO qam to induce hypoglycemia and given potential for metformin 500mg PO bid to cause nausea/vomiting. Instead, patient is being maintained on a carbohydrate consistent diet, aspart insulin sliding scale qac + qhs, and POC glucose qac + qhs. 11.Vascular. DVT prophylaxis. Patient did not receive pharmacologic DVT prophylaxis with heparin 5000 units SQ q12 in the immediate post-operative period. Patient started to receive heparin 5000 units SQ q12 on 02/05/2025, 9:00am. Patient reports no calf pain, leg swelling, or pleurisy on 02/05/2025 to suggest either DVT or PE. 12.Pain Management. Patient reports 0/10 pain on 02/04/2025 - 02/05/2025. Continue tylenol 650mg PO q6 [id number], tylenol 650mg PO q4 prn pain 1-3, headache, temp > 100.4 degrees Fahrenheit, morphine 2mg IV q4 prn pain 4-6, morphine 4mg IV q4 prn pain 7-10. 13.Disposition. Code status, DNR/DNI @ home alone. Condition of patient remains fair. I anticipate that this patient will remain in [facility] for the next 1-2 midnights in order to convalesce, followed by PT/OT Service evaluations in order to determine if patient can be discharged back to his home or to SNF for short-term rehab. Patient will then follow up with his PCP Dr. José Mixon within 7 days of hospital discharge; patient will follow up with his Podiatric Surgeon Dr. Be Hay within 14 days of hospital discharge. Of final note, I spoke with the patient at the bedside in [facility] [place] floor bed #[id number] today, 02/05/2025, and the patient concurs with the assessment and plan as described above. Admission and Anticipated Discharge Date Admission Date: February 03, 2025 Subjective "I feel ok. No pain. Dr. Hay fixed my left ankle fine yesterday (02/04/2025, 2:28pm). I am waiting to see where I will be going for rehab. I live alone and will need some help to recover from this fall and fracture of my left ankle." Review of Systems Constitutional: Negative for antecedent/coincident fevers, chills, diaphoresis, cough, wheeze, sore throat, hemoptysis, chest pains, palpitations, pleurisy, nausea, vomiting, diarrhea, abdominal pain, pelvic pain, hematemesis, hematochezia, melena, hematuria, dysuria, frequency, urgency, headaches, dizziness, lightheadedness, visual changes, hearing changes, weakness, falls, syncope, trauma, travel history, sick contacts, or food/drug ingestions novel or new. All other review of systems are reported as negative by the patient on 02/05/2025. Physical Exam Constitutional: General: Comfortable, coherent, cooperative. Wide awake and alert. Not confused, lethargic, or obtunded. Patient speaks in complete, fluent, and articulate sentences without pause, interruption, cough, or wheeze. HEENT: Normocephalic, atraumatic. Pupils equally round and reactive to light. No nystagmus, gaze paresis, anisocoria, miosis, mydriasis, hyphema, scleral injection, conjunctivitis, or pterygium. No rhinorrhea or otorrhea. No pharyngeal discharge or erythema. Neck: Supple, non-tender, no stridor, bruit, goiter, hepatojugular reflux. Jugular venous pressure is estimated to be 8 cm above the sternal angle of Rakesh, which is estimated to be 5 cm above the level of the right atrium. Lymph: No anterior/posterior cervical, supraclavicular/infraclavicular, axillary, epitrochlear, or inguinal adenopathy. Chest: Symmetric rise and fall with respirations. Lungs: Clear to auscultation and percussion. No audible expiratory wheeze, egophony, pectoriloquy, increase in tactile fremitus, or flatness/dullness to percussion at the bases. Heart: RRR, S1 and S2 noted. No S3 or S4 summation gallop noted. No tripartite friction rub. Grade II/ early systolic murmur @ LLSB without radiation to the carotids, axilla, or back, and which remains invariant in regards to the respiratory cycle. Abdomen: Soft, non-tender, non-distended. No rebound, guarding, Mckee's sign, or organomegaly. Bowel sounds sounds auscultated in all 4 quadrants. Extremities: No clubbing, cyanosis. Left lower costello/ankle/foot swathed in bandages s/p ORIF of left distal fibula fracture (02/04/2025, 2:28pm). 2+ pedal pulses bilaterally. Skin: No delay in capillary refill time > 2 seconds. No decubitus ulcer, exanthem, or enanthem. Neurology: DTR+ and symmetric. No tremors, tics, or myoclonus. Urology: No aguilera catheter. No urethral discharge. Psychiatry: No suicidal ideation. No homicidal ideation. Results & Data Results & Data Vital Signs (Past 12 Hours) Vital Signs Temp Pulse Resp BP Pulse Ox O2 Del Method 02/05/25 15:48 36.9 C 80 18 117/53 L 98 Room Air 02/05/25 11:29 36.9 C 85 18 137/58 L 97 Room Air 02/05/25 07:35 36.6 C 78 16 122/60 95 Room Air Laboratory Results 02/05/25 02/05/25 02/04/25 11:31 07:38 21:08 POC Glucose 132 H 157 H 214 H 02/04/25 18:20 POC Glucose 167 H PG Care Time/CCT Total # of Minutes Spent Total Time Spent with Patient: Total time spent is greater than 50% in coordination of care (as documented) at patient's floor/unit and/or counseling patient: Coding Level of Care Code 99078 SUB INP/OBS CARE 2/35MIN Diagnoses Ankle fracture, bimalleolar, closed S82.843A Diabetes E11.9 Diabetes mellitus type: type 2 Diabetes mellitus knuckler insulin use: without knuckler use Diabetes mellitus complication status: with kidney complications Diabetes mellitus complication detail: with chronic kidney disease Chronic kidney disease stage 3 subtype: stage 3a (GFR 45-59) HLD (hyperlipidemia) E78.5 HTN (hypertension) I10 Anemia D64.9 (2) Diabetes Diabetes mellitus type: type 2 Diabetes mellitus jail insulin use: without knuckler use Diabetes mellitus complication status: with kidney complications Diabetes mellitus complication detail: with chronic kidney disease Chronic kidney disease stage 3 subtype: stage 3a (GFR 45-59)
--- NOTE | 2025-02-06 16:27 | Hospitalist Progress Note ---
Date of Service February 06, 2025 Assessment & Plan (1) Ankle fracture, bimalleolar, closed: (2) Diabetes: (3) HLD (hyperlipidemia): (4) HTN (hypertension): (5) Anemia: Plan 84 years old male with PMH of DNR/DNI @ home alone, obesity with BMI 34.2 (height 175.3 cm; weight 105.2 kg), chronic normocytic, normochromic anemia with baseline Hb range, 11.3 - 12.9 g/dL (01/12/2018 - 12/21/2024), prostate CA (diagnosed in 12/18/[address] and bone scan revealing no evidence of concetta, bony, or visceral metastases), s/p external beam XRT (50.4 Geigy in 28 FX) to the prostate, seminal vesicles, and pelvic nodes with cone down (30.6 Geigy in 17 FX) on prostate and seminal vesicles, completing such external beam XRT on 05/09/2016, and leuprolide (first dose administered on 08/22/2021), now restarted leuprolide 7.5mg IM monthly given recent rise in PSA, BPH on alfuzosin 10mg PO qam, GERD on famotidine 20mg PO bid, hyperlipidemia on atorvastatin 10mg PO qhs, HTN on amlodipine 10mg PO qpm, spironolactone 25mg - HCTZ 25mg PO daily, and losartan 50mg PO bid, CKD stage III with baseline creatinine range, 1.13 - 1.31 (06/16/2023 - 12/21/2024), non-insulin dependent DM2 with HbA1c 6.8% (11/18/2024, 9:05am) on glimepiride 1mg PO qam and metformin 500mg PO bid, and ambulatory dysfunction s/p mechanical fall down 3-4 upper steps in his home ~5 years ago, wearing socks, followed by slipping on the smooth step and landing on his buttock without fracture and without antecedent/coincident syncope, who sustained a mechanical fall down 3-4 lower steps in his home on 02/03/2025, wearing socks, followed by slipping on the smooth step and twisting his left lower leg/ankle/foot, resulting in an acute distal left fibula fracture, and without antecedent/coincident syncope. Patient was subsequently admitted to the inpatient hospitalist service @ [facility] on 02/03/2025 with the following diagnosis: 1. Acute fracture of the distal left fibula (as noted on 02/03/2025, 4:25pm left tibia/fibula x-ray). The following medical issues are being addressed: 1. Podiatry. Acute fracture of the distal left fibula (as noted on 02/03/2025, 4:25pm left tibia/fibula x-ray). s/p ORIF of acute fracture of the distal left fibula (02/04/2025, 2:28pm, [facility] Podiatric Surgeon Dr. Be Hay)." Await PT/OT Service evaluations in the 02/07/2025 am, along with Case Management Service evaluation in the 02/07/2025 am, to determine what SNF has a bed open to accept patient, and what SNF patient's insurance company will approve for short- term rehab. 2. Fluids, electrolytes, nutrition. Obesity with BMI 34.2 (height 175.3 cm; weight 105.2 kg). Patient needs to lose at least 28.8 kg in order to attain a BMI 24.9, at which level, the patient would no longer be deemed obese or overweight. Patient reports that he is too old at 84 years of age to modify his diet, exercise, and/or lifestyle in order to lose any weight over any time period. I concur. 3. Hematology. Chronic normocytic, normochromic anemia with baseline Hb range, 11.3 - 12.9 g/dL (01/12/2018 - 12/21/2024). cf., admission Hb 11.3 g/dL, MCV 94.1, MCHC 33.9 (02/03/2025, 4:15pm). Patient reports no mucosal bleeding and remains hemodynamically stable. Etiology of chronic normocytic, normochromic anemia is most probably due to anemia of chronic disease(s), including prostate CA and/or CKD stage III. 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 Hence, I have opted to hold off further Hb testing in order to preserve and conserve patient's citlaly blood supply while patient remains in [facility]. 4. Oncology. Prostate CA (diagnosed in 12/18/[address] and bone scan revealing no evidence of concetta, bony, or visceral metastases), s/p external beam XRT (50.4 Geigy in 28 FX) to the prostate, seminal vesicles, and pelvic nodes with cone down (30.6 Geigy in 17 FX) on prostate and seminal vesicles, completing such external beam XRT on 05/09/2016, and leuprolide (first dose administered on 08/22/2021), now restarted leuprolide 7.5mg IM monthly given recent rise in PSA. Patient will continue with leuprolide 7.5mg IM monthly at [facility] (to be determined as of 02/06/2025) as this medication is not available on hospital formulary. 5. Urology. BPH. Asymptomatic on alfuzosin 10mg PO qam at home. Hold off alfuzosin 10mg PO qam given the potential for this alpha 1 adrenergic antagonist to cause hypotension while patient remains in [facility]. 6. GI. GERD. Asymptomatic on famotidine 20mg PO bid at home. Continue famotidine 20mg PO bid while patient remains in [facility]. 7. CV. Hyperlipidemia. Asymptomatic on atorvastatin 10mg PO qhs at home. Continue atorvastatin 20mg PO qhs while patient remains in [facility]. 8. CV. HTN. Well-controlled with BP 154/65 (02/04/2025, 7:30pm) and BP 117/53 (02/05/2025, 3:48pm) and BP 129/65 (02/06/2025, 2:59pm) on amlodipine 10mg PO qpm, spironolactone 25mg - HCTZ 25mg PO daily, and losartan 50mg PO bid at home. Continue amlodipine 10mg PO qpm and losartan 50mg PO bid while patient remains in [facility]. Hold off patient's home-scheduled spironolactone 25mg - HCTZ 25mg PO daily given potential for this medication to cause hypotension while patient remains in [facility]. Continue 2 gram Na diet and BP checks q shift while patient remains in [facility]. 9. Renal. CKD stage III with baseline creatinine range, 1.13 - 1.31 (06/16/2023 - 12/21/2024). cf., admission creatinine 1.25 mg/dL, GFR 56.8 mL/min (02/03/2025, 4:15pm). The cornerstone of therapy of CKD is to treat the underlying causes of CKD, namely, HTN and DM. 10.Endocrinology. Non-insulin dependent DM2 with HbA1c 6.8% (11/18/2024, 9:05am). cf., admission glucose 263 mg/dL, anion gap 12, CO2 12 (02/03/2025, 4:15pm). cf., repeat glucose 181 mg/dL (02/03/2025, 9:44pm). cf., repeat glucose 147 mg/dL (02/04/2025, 8:08am). cf., repeat glucose 159 mg/dL (02/04/2025, 11:37am). cf., repeat glucose 142 mg/dL (02/04/2025, 3:39pm). cf., repeat glucose 167 mg/dL (02/04/2025, 6:20pm) cf., repeat glucose 132 mg/dL (02/05/2025, 11:31am). cf., repeat glucose 139 mg/dL (02/06/2025, 7:45am). cf., repeat glucose 156 mg/dL (02/06/2025, 11:28am). Hold off patient's home-scheduled glimepiride 1mg PO qam and metformin 500mg PO bid given potential for glimepiride 1mg PO qam to induce hypoglycemia and given potential for metformin 500mg PO bid to cause nausea/vomiting. Instead, patient is being maintained on a carbohydrate consistent diet, aspart insulin sliding scale qac + qhs, and POC glucose qac + qhs. 11.Vascular. DVT prophylaxis. Patient did not receive pharmacologic DVT prophylaxis with heparin 5000 units SQ q12 in the immediate post-operative period. Patient started to receive heparin 5000 units SQ q12 on 02/05/2025, 9:00am. Patient reports no calf pain, leg swelling, or pleurisy on 02/05/2025 - 02/06/2025 to suggest either DVT or PE. 12.Pain Management. Patient reports 0/10 pain on 02/04/2025 - 02/06/2025. Continue tylenol 650mg PO q6 [id number], tylenol 650mg PO q4 prn pain 1-3, headache, temp > 100.4 degrees Fahrenheit, morphine 2mg IV q4 prn pain 4-6, morphine 4mg IV q4 prn pain 7-10. 13.Disposition. Code status, DNR/DNI @ home alone. Condition of patient remains fair. I anticipate that this patient will remain in [facility] for the next 1-2 midnights in order to convalesce. Patient awaits PT/OT Service evaluations and Case Management Service evaluation in the 02/07/2025 am, to determine what SNF has a bed open to accept patient, and what SNF patient's insurance company will approve for short-term rehab. Patient will then be discharged to SNF for short-term rehab, and will follow up with his PCP Dr. José Mixon within 7 days of hospital discharge; patient will follow up with his Podiatric Surgeon Dr. Be Hay within 14 days of hospital discharge. Of final note, I spoke with the patient at the bedside in [facility] Med-Surg floor bed #[id number] today, 02/06/2025, and the patient concurs with the assessment and plan as described above. Admission and Anticipated Discharge Date Admission Date: February 03, 2025 Subjective "I feel fine. No pain in my left ankle, or anywhere. Dr. Hay fixed my left ankle fine (02/04/2025, 2:28pm). I am waiting to see where I will be going for rehab. I live alone and will need some help to recover from this fall and fracture of my left ankle. Maybe tomorrow the [employer] can let me know where I will go for rehab." Review of Systems Constitutional: Negative for antecedent/coincident fevers, chills, diaphoresis, cough, wheeze, sore throat, hemoptysis, chest pains, palpitations, pleurisy, nausea, vomiting, diarrhea, abdominal pain, pelvic pain, hematemesis, hematochezia, melena, hematuria, dysuria, frequency, urgency, headaches, dizziness, lightheadedness, visual changes, hearing changes, weakness, falls, syncope, trauma, travel history, sick contacts, or food/drug ingestions novel or new. All other review of systems are reported as negative by the patient on 02/06/2025. Physical Exam Constitutional: General: Comfortable, coherent, cooperative. Wide awake and alert. Not confused, lethargic, or obtunded. Patient speaks in complete, fluent, and articulate sentences without pause, interruption, cough, or wheeze. HEENT: Normocephalic, atraumatic. Pupils equally round and reactive to light. No nystagmus, gaze paresis, anisocoria, miosis, mydriasis, hyphema, scleral injection, conjunctivitis, or pterygium. No rhinorrhea or otorrhea. No pharyngeal discharge or erythema. Neck: Supple, non-tender, no stridor, bruit, goiter, hepatojugular reflux. Jugular venous pressure is estimated to be 8 cm above the sternal angle of Rakesh, which is estimated to be 5 cm above the level of the right atrium. Lymph: No anterior/posterior cervical, supraclavicular/infraclavicular, axillary, epitrochlear, or inguinal adenopathy. Chest: Symmetric rise and fall with respirations. Lungs: Clear to auscultation and percussion. No audible expiratory wheeze, egophony, pectoriloquy, increase in tactile fremitus, or flatness/dullness to percussion at the bases. Heart: RRR, S1 and S2 noted. No S3 or S4 summation gallop noted. No tripartite friction rub. Grade II/ early systolic murmur @ LLSB without radiation to the carotids, axilla, or back, and which remains invariant in regards to the respiratory cycle. Abdomen: Soft, non-tender, non-distended. No rebound, guarding, Mckee's sign, or organomegaly. Bowel sounds sounds auscultated in all 4 quadrants. Extremities: No clubbing, cyanosis. Left lower costello/ankle/foot swathed in bandages s/p ORIF of left distal fibula fracture (02/04/2025, 2:28pm). 2+ pedal pulses bilaterally. Skin: No delay in capillary refill time > 2 seconds. No decubitus ulcer, exanthem, or enanthem. Neurology: DTR+ and symmetric. No tremors, tics, or myoclonus. Urology: No aguilera catheter. No urethral discharge. Psychiatry: No suicidal ideation. No homicidal ideation. Results & Data Results & Data Vital Signs (Past 12 Hours) Vital Signs Temp Pulse Resp BP BP Pulse Ox O2 Del Method 02/06/25 14:59 36.4 C L 97 H 18 129/65 100 Room Air 02/06/25 07:44 36.6 C 65 18 112/58 L 98 Room Air Laboratory Results 02/06/25 02/06/25 02/05/25 11:28 07:45 20:20 POC Glucose 156 H 139 H 112 H 02/05/25 16:50 POC Glucose 184 H PG Care Time/CCT Total # of Minutes Spent Total Time Spent with Patient: Total time spent is greater than 50% in coordination of care (as documented) at patient's floor/unit and/or counseling patient: Coding Level of Care Code 57397 SUB INP/OBS CARE 2/35MIN Diagnoses Ankle fracture, bimalleolar, closed S82.843A Diabetes E11.9 Diabetes mellitus type: type 2 Diabetes mellitus snf insulin use: without tank terminal gauger use Diabetes mellitus complication status: with kidney complications Diabetes mellitus complication detail: with chronic kidney disease Chronic kidney disease stage 3 subtype: stage 3a (GFR 45-59) HLD (hyperlipidemia) E78.5 HTN (hypertension) I10 Anemia D64.9 (2) Diabetes Diabetes mellitus type: type 2 Diabetes mellitus snf insulin use: without tank terminal gauger use Diabetes mellitus complication status: with kidney complications Diabetes mellitus complication detail: with chronic kidney disease Chronic kidney disease stage 3 subtype: stage 3a (GFR 45-59)
--- NOTE | 2025-02-07 13:12 | Hospitalist Progress Note ---
Date of Service February 07, 2025 Assessment & Plan (1) Ankle fracture, bimalleolar, closed: Plan: Sustained left bimalleolar fracture following mechanical fall Now status post ORIF Nonweightbearing to orthopedics Patient is waiting for rehab (2) Diabetes: (3) HLD (hyperlipidemia): (4) HTN (hypertension): (5) Anemia: Plan Other chronic issues: 4. Oncology. Prostate CA . Patient will continue with leuprolide 7.5mg IM monthly at [facility] (to be determined as of 02/06/2025) as this medication is not available on hospital formulary. 5. Urology. BPH. Asymptomatic on alfuzosin 10mg PO qam at home. Hold off alfuzosin 10mg PO qam given the potential for this alpha 1 adrenergic antagonist to cause hypotension while patient remains in [facility]. 6. GI. GERD. Asymptomatic on famotidine 20mg PO bid at home. Continue famotidine 20mg PO bid while patient remains in [facility]. 7. CV. Hyperlipidemia. Asymptomatic on atorvastatin 10mg PO qhs at home. Continue atorvastatin 20mg PO qhs while patient remains in [facility]. 8. CV. HTN. Well-controlled on amlodipine 10mg PO qpm, spironolactone 25mg - HCTZ 25mg PO daily, and losartan 50mg PO bid at home. Continue amlodipine 10mg PO qpm and losartan 50mg PO bid while patient remains in [facility]. Hold off patient's home-scheduled spironolactone 25mg - HCTZ 25mg PO daily given potential for this medication to cause hypotension while patient remains in [facility]. Continue 2 gram Na diet and BP checks q shift while patient remains in [facility]. 9. Renal. CKD stage III with baseline creatinine range, 1.13 - 1.31 (06/16/2023 - 12/21/2024). cf., admission creatinine 1.25 mg/dL, GFR 56.8 mL/min (02/03/2025, 4:15pm). The cornerstone of therapy of CKD is to treat the underlying causes of CKD, namely, HTN and DM. 10.Endocrinology. Non-insulin dependent DM2 with HbA1c 6.8% (11/18/2024, 9:05am). Hold off patient's home-scheduled glimepiride 1mg PO qam and metformin 500mg PO bid given potential for glimepiride 1mg PO qam to induce hypoglycemia and given potential for metformin 500mg PO bid to cause nausea/vomiting. Instead, patient is being maintained on a carbohydrate consistent diet, aspart insulin sliding scale qac + qhs, and POC glucose qac + qhs. 11.Vascular. DVT prophylaxis. Patient did not receive pharmacologic DVT prophylaxis with heparin 5000 units SQ q12 in the immediate post-operative period. 12.Pain Management. Continue tylenol 650mg PO q6 [id number], tylenol 650mg PO q4 prn pain 1- 3, headache, temp > 100.4 degrees Fahrenheit, morphine 2mg IV q4 prn pain 4-6, morphine 4mg IV q4 prn pain 7-10. 13.Disposition. Code status, DNR/DNI @ home alone. Condition of patient remains fair. I anticipate that this patient will remain in [facility] for the next 1-2 midnights in order to convalesce. Patient awaits PT/OT Service evaluations and Case Management Service evaluation in the 02/07/2025 am, to determine what SNF has a bed open to accept patient, and what SNF patient's insurance company will approve for short-term rehab. Admission and Anticipated Discharge Date Admission Date: February 03, 2025 Subjective Patient seen and examined today, no new complaints, states pain is under control, awaiting rehab Review of Systems Review of Systems: All systems reviewed are negative, apart from the ones contained in the history. Physical Exam Physical Exam: The patient is awake, alert and oriented 3, well developed and well nourished, normocephalic and atraumatic, lying in bed and in no acute distress. HEENT--PERRL, EOMI, mucous membranes and oropharynx mildly dry Neck--supple. No JVD. No bruits. Thyroid normal, trachea midline, no adenopathy. Heart--normal S1 and S2. No murmurs, rubs or gallops. Lungs--clear bilaterally, no respiratory distress, no accessory muscle use. Abdomen--normal bowel sounds and soft. Extremities--Left ankle in bandage Dermatologic--normal skin turgor, normal color, no abnormal lymph nodes, no rash. Neurologic--cranial nerves II through XII grossly intact. Rheumatologic--normal range of motion. Psychiatric--normal affect. Results & Data Results & Data Vital Signs (Past 12 Hours) Vital Signs Temp Pulse Resp BP BP Pulse Ox O2 Del Method 02/07/25 11:26 98.1 F 90 18 148/70 H 100 Room Air 02/07/25 07:37 98.1 F 64 18 116/60 98 Room Air PG Care Time/CCT Total # of Minutes Spent Total Time Spent with Patient: Total time spent is greater than 50% in coordination of care (as documented) at patient's floor/unit and/or counseling patient: Coding Level of Care Code 02408 SUB INP/OBS CARE 2/35MIN Diagnoses Ankle fracture, bimalleolar, closed S82.843A Diabetes E11.9 Diabetes mellitus type: type 2 Diabetes mellitus group home insulin use: without group home use Diabetes mellitus complication status: with kidney complications Diabetes mellitus complication detail: with chronic kidney disease Chronic kidney disease stage 3 subtype: stage 3a (GFR 45-59) HLD (hyperlipidemia) E78.5 HTN (hypertension) I10 Anemia D64.9 Time Spent (min) 35 (2) Diabetes Diabetes mellitus type: type 2 Diabetes mellitus long term care social worker insulin use: without long term care social worker use Diabetes mellitus complication status: with kidney complications Diabetes mellitus complication detail: with chronic kidney disease Chronic kidney disease stage 3 subtype: stage 3a (GFR 45-59)
[2025-02-07 14:49] VITALS: TEMP 97.7
--- NOTE | 2025-02-07 14:58 | Podiatry Progress Note ---
Date of Service February 07, 2025 Assessment & Plan (1) Closed fracture of left distal fibula: (2) Closed fracture dislocation of left ankle: Plan 84-year-old male postop day 3 status post ORIF left ankle fracture/dislocation on 02/04/2025. Plan: 1. Post discharge DVT prophylaxis w/ ASA 81 mg twice daily. 2. Awaiting PT/OT evaluation and recommendations. Non-WB on LLE. 3. Pain to the left lower extremity well-controlled continue current regimen. 4. Medical management as per the primary medicine service. 5. Continue rest, ice and elevation. Keep splint/dressing clean and dry. 6. Patient okay for discharge from podiatry standpoint following evaluation and recommendations from PT/OT. 7. Follow-up outpatient in podiatry office within 2 weeks. Admission and Anticipated Discharge Date Admission Date: February 03, 2025 Subjective Postop day 3 status post ORIF left ankle. Patient seen today resting comfortably in bedside chair. Posterior splint and dressing remain clean dry and intact. He denies any pain in the left lower extremity. Reports he has been keeping leg elevated for the most part the exception of when he is sitting in the bedside chair. Awaiting evaluation recommendations from PT OT. Patient is aware he is likely discharging to a custodial facility. Thus far has been told this will likely be [facility] but it does not sound like bed has been arranged thus far. Review of Systems Review of Systems: Denies nausea, vomiting, fever, chills. Denies pain in the left leg. Denies pain from the splint. Denies numbness tingling or burning in the left leg or foot. All systems reviewed and negative unless otherwise stated in HPI. Physical Exam Physical Exam: Left lower extremity in well-padded posterior splint. Capillary refill time 2 to 3 seconds in toes x 5 left foot. Patient is able to go through range of motion with toes without difficulty. Sensation remains intact to toes x 5 to the left foot. Splint and dressing are loosened anteriorly to evaluate the underlying skin which appears to be clean healthy and intact with no signs of constriction. Dressing over the wound is left intact. Dressing reapproximated with loosely applied Cecil bandage. Results & Data Results & Data Vital Signs (Past 12 Hours) Vital Signs Temp Pulse Pulse Resp BP BP Pulse Ox 02/07/25 14:47 36.5 C 80 16 135/53 L 99 02/07/25 11:26 36.7 C 90 18 148/70 H 100 02/07/25 07:37 36.7 C 64 18 116/60 98 O2 Del Method 02/07/25 14:47 Room Air 02/07/25 11:26 Room Air 02/07/25 07:37 Room Air Coding Level of Care Code 72098 Post Operative Follow-Up Diagnoses Other closed fracture of distal end of left fibula with routine healing, alvarez bsequent encounter S82.832D Encounter type: subsequent encounter Fracture morphology: other fracture Fracture healing: with routine healing Closed fracture dislocation of left ankle with routine healing, subsequent encounter S82.892D Encounter type: subsequent encounter Fracture healing: with routine healing (1) Closed fracture of left distal fibula Encounter type: subsequent encounter Fracture morphology: other fracture Fracture healing: with routine healing Qualified Code(s): S82.832D - Other fracture of upper and lower end of left fibula, subsequent encounter for closed fracture with routine healing (2) Closed fracture dislocation of left ankle Encounter type: subsequent encounter Fracture healing: with routine healing Qualified Code(s): S82.892D - Other fracture of left lower leg, subsequent encounter for closed fracture with routine healing
[2025-02-08 07:00] VITALS: RESP 16; O2SAT 97
[2025-02-08 11:16] VITALS: BP 109/62; PULSE 90
--- NOTE | 2025-02-08 11:26 | Discharge Summary ---
Date of Service February 08, 2025 Admission HPI Per Admitting Provider 84 y/o fell down stairs because of slipping on carpet wearing socks. Fell down 3-4 steps, landed awkwardly and resultant severe L ankle pain and deformity. He denies hitting or hurting anything else. did not hit his head or injure his neck. He did not have any preceding lightheadedness dizziness or syncope. He did not lose consciousness after the fall. currently he has intermittent moderate/brief left ankle pain. He has not had anything for pain yet. on initial ED exam there was obvious L ankle fracture dislocation. Not open, skin tenting. Reduced by ED. Current xrays are post-reduction Bimalleolar and L fibular fracture. ED provider spoke with Elvin Collins for ortho ED placed splint he does not have any cardiac history, he is able to go up 2 flights of stairs does get a little bit tired and winded and has to rest after 2 flights, this does not cause any chest pain or pressure. He does not get exertional chest pain or pressure when walking. He does have a longstanding intermittent dull chest heaviness left lateral chest near the axilla, he does not relate this to any particular thing and it does not appear with exertion. he does have chronic numbness and tingling in his strived on the left side of his body including left arm left leg and sometimes face this is been going on since he was 20 years old and has been unchanged. He also has some chronic low back pain radiating toward buttock/hip that started after he took a similar fall down a few stairs while also wearing socks last summer. Otherwise he denies other symptoms including shortness of breath cough abdominal pain nausea vomiting diarrhea difficulty urinating dysuria. Admission Exam (Per Admitting) Constitutional The patient is awake, alert and oriented 3, well developed and well nourished, normocephalic and atraumatic, lying in bed and in no acute distress. HEENT--PERRL, EOMI, mucous membranes and oropharynx mildly dry Neck--supple. No JVD. No bruits. Thyroid normal, trachea midline, no adenopathy. Heart--normal S1 and S2. No murmurs, rubs or gallops. Lungs--clear bilaterally, no respiratory distress, no accessory muscle use. Abdomen--normal bowel sounds and soft. Extremities--left leg in bandage Dermatologic--normal skin turgor, normal color, no abnormal lymph nodes, no rash. Neurologic--cranial nerves II through XII grossly intact. Rheumatologic--normal range of motion. Psychiatric--normal affect. Discharge Data Consultations 02/03/25 17:24 ED Decision to Admit Stat 02/04/25 05:10 Consult Orthopedic Surgery Routine 02/04/25 14:46 Consult Podiatry Routine Procedures Performed Operation Date: 02/04/25 11:30 Actual Procedures p Left Ankle Open Reduction Internal Fixation(Left) - Be Hay DPM Hospital Course (1) Ankle fracture, bimalleolar, closed: Sustained left bimalleolar fracture following mechanical fall Now status post ORIF Nonweightbearing to orthopedics Patient is waiting for rehab (2) Diabetes: (3) HLD (hyperlipidemia): (4) HTN (hypertension): (5) Anemia: Plan Other chronic issues: 4. Oncology. Prostate CA . Patient will continue with leuprolide 7.5mg IM monthly at [facility] (to be determined as of 02/06/2025) as this medication is not available on hospital formulary. 5. Urology. BPH. Asymptomatic on alfuzosin 10mg PO qam at home. Hold off alfuzosin 10mg PO qam given the potential for this alpha 1 adrenergic antagonist to cause hypotension while patient remains in [facility]. 6. GI. GERD. Asymptomatic on famotidine 20mg PO bid at home. Continue famotidine 20mg PO bid while patient remains in [facility]. 7. CV. Hyperlipidemia. Asymptomatic on atorvastatin 10mg PO qhs at home. Continue atorvastatin 20mg PO qhs while patient remains in [facility]. 8. CV. HTN. Well-controlled on amlodipine 10mg PO qpm, spironolactone 25mg - HCTZ 25mg PO daily, and losartan 50mg PO bid at home. Continue amlodipine 10mg PO qpm and losartan 50mg PO bid while patient remains in [facility]. Hold off patient's home-scheduled spironolactone 25mg - HCTZ 25mg PO daily given potential for this medication to cause hypotension while patient remains in [facility]. Continue 2 gram Na diet and BP checks q shift while patient remains in [facility]. 9. Renal. CKD stage III with baseline creatinine range, 1.13 - 1.31 (06/16/2023 - 12/21/2024). cf., admission creatinine 1.25 mg/dL, GFR 56.8 mL/min (02/03/2025, 4:15pm). The cornerstone of therapy of CKD is to treat the underlying causes of CKD, namely, HTN and DM. 10.Endocrinology. Non-insulin dependent DM2 with HbA1c 6.8% (11/18/2024, 9:05am). Hold off patient's home-scheduled glimepiride 1mg PO qam and metformin 500mg PO bid given potential for glimepiride 1mg PO qam to induce hypoglycemia and given potential for metformin 500mg PO bid to cause nausea/vomiting. Instead, patient is being maintained on a carbohydrate consistent diet, aspart insulin sliding scale qac + qhs, and POC glucose qac + qhs. 11.Vascular. DVT prophylaxis. Patient did not receive pharmacologic DVT prophylaxis with heparin 5000 units SQ q12 in the immediate post-operative period. 12.Pain Management. Continue tylenol 650mg PO q6 [id number], tylenol 650mg PO q4 prn pain 1- 3, headache, temp > 100.4 degrees Fahrenheit, morphine 2mg IV q4 prn pain 4-6, morphine 4mg IV q4 prn pain 7-10. 13.Disposition. d/c to SNF Coding Level of Care Code 04911 INP/OBS DISCH >30 MIN Diagnoses Ankle fracture, bimalleolar, closed S82.843A Diabetes E11.9 Diabetes mellitus type: type 2 Diabetes mellitus halfway insulin use: without halfway use Diabetes mellitus complication status: with kidney complications Diabetes mellitus complication detail: with chronic kidney disease Chronic kidney disease stage 3 subtype: stage 3a (GFR 45-59) HLD (hyperlipidemia) E78.5 HTN (hypertension) I10 Anemia D64.9 Time Spent (min) 35
--- NOTE | 2025-02-10 09:26 | Anesthesiology Progress Note ---
Date of Service February 04, 2025 Anesthesia Post Procedure Transfer of Care Handoff Completed per policy Notes Mental Status: alert / awake / arousable and participated in evaluation Patient Amnestic to Procedure: Yes Nausea / Vomiting: adequately controlled Pain: adequately controlled Airway Patency, RR, SpO2: stable & adequate BP & HR: stable & adequate Hydration State: stable & adequate Anesthetic Complications: no major complications apparent and Pt Satisfied with anesthetic care
== END 2025-02-08 12:52 | DRG 494 ==
LOC: SUATTDRO → ED 15:47 → 3N 17:39 → SUATTDRO 17:39 → 3N 19:50